=== PATIENT | female | born 1995 | race Two or more races ===

== ENCOUNTER 2020-10-11 13:03 | Outpatient (REF) | payer MEDICAID, SELFPAY ==
[2020-10-12 03:37] LABS: CT PCR NOT DETECTED (Not Detect.); NG PCR NOT DETECTED (Not Detect.)
[2020-10-12 07:55] LABS: HBc Num1 0.11 S/CO (0.00-0.79); Hepatitis B Core Antibody Nonreactive (Nonreactive)
[2020-10-12 08:05] LABS: HIV AB/AG Nonreactive (Nonreactive); ~HepC Num1 0.09 S/CO (0.00-0.79); ~Hepatitis C Antibody Nonreactive (Nonreactive)
[2020-10-12 08:14] LABS: Syphilis Screen Nonreactive (Nonreactive)
== END 2020-10-11 13:04 | disposition home or self-care (01) ==
LOC: HO.LAB 13:03
PROVIDERS: Visit Provider Advanced Practice Midwife
DX: Z01.419 Encounter for gynecological examination (general) (routine) without abnormal findings (principal); Z20.2 Contact with and (suspected) exposure to infections with a predominantly sexual mode of transmission
CPT/HCPCS: 86704; 86780; 86803; 87389; 87491; 87591

== ENCOUNTER 2021-02-13 18:01 | Emergency (ER) | payer OTHER, SELFPAY ==
--- NOTE | ~2021-02-13 | XR_ITS ---
EXAMINATION: LEFT SHOULDER, LEFT ELBOW AND LEFT WRIST CLINICAL INFORMATION: Shoulder, elbow and wrist pain COMPARISON: None TECHNIQUE: 4 views left shoulder, 3 views left elbow, 4 views left wrist FINDINGS: Left shoulder: No bone joint or soft tissue abnormality is seen. Left elbow: No significant bone joint or soft tissue abnormality is seen. Left wrist: No significant bone joint or soft tissue abnormality is seen. XR/XR wrist LT min 3V IMPRESSION: Normal studies without evidence of fracture.
--- NOTE | ~2021-02-13 | XR_ITS ---
EXAMINATION: LEFT SHOULDER, LEFT ELBOW AND LEFT WRIST CLINICAL INFORMATION: Shoulder, elbow and wrist pain COMPARISON: None TECHNIQUE: 4 views left shoulder, 3 views left elbow, 4 views left wrist FINDINGS: Left shoulder: No bone joint or soft tissue abnormality is seen. Left elbow: No significant bone joint or soft tissue abnormality is seen. Left wrist: No significant bone joint or soft tissue abnormality is seen. XR/XR shoulder LT min 2V IMPRESSION: Normal studies without evidence of fracture.
--- NOTE | ~2021-02-13 | XR_ITS ---
EXAMINATION: LEFT SHOULDER, LEFT ELBOW AND LEFT WRIST CLINICAL INFORMATION: Shoulder, elbow and wrist pain COMPARISON: None TECHNIQUE: 4 views left shoulder, 3 views left elbow, 4 views left wrist FINDINGS: Left shoulder: No bone joint or soft tissue abnormality is seen. Left elbow: No significant bone joint or soft tissue abnormality is seen. Left wrist: No significant bone joint or soft tissue abnormality is seen. XR/XR elbow LT 2V IMPRESSION: Normal studies without evidence of fracture.
[2021-02-13 18:13] VITALS: BP 170/91; PULSE 70; O2SAT 96
[2021-02-13 18:34] VITALS: BP 125/60; PULSE 78; RESP 16; TEMP 36.9; O2SAT 96; BMI 46.5
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
[2021-02-13 21:24] VITALS: BP 120/60; PULSE 70; RESP 16
== END 2021-02-13 22:13 | disposition home or self-care (01) ==
PROVIDERS: Emergency Provider Emergency Medicine Emergency Medical Services
DX: S63.502A Unspecified sprain of left wrist, initial encounter (principal); S66.912A Strain of unspecified muscle, fascia and tendon at wrist and hand level, left hand, initial encounter; V43.52XA Car driver injured in collision with other type car in traffic accident, initial encounter; Y93.89 Activity, other specified; Y92.414 Local residential or business street as the place of occurrence of the external cause; Y99.9 Unspecified external cause status
CPT/HCPCS: 29125; 73030; 73070; 73110; 99283; 99284

== ENCOUNTER → 2021-02-20 10:23 | Outpatient (BNVA) | payer OTHER, SELFPAY | PROVIDERS: Visit Provider Orthopaedic Surgery ==

== ENCOUNTER → 2021-05-19 08:30 | Outpatient (BNVA) | payer MEDICAID, SELFPAY | PROVIDERS: Referring Provider Nurse Practitioner; Visit Provider Physician Assistant ==

== ENCOUNTER 2021-05-23 07:23 | Outpatient (REF) | payer MEDICAID, SELFPAY ==
--- NOTE | ~2021-05-23 | XR_ITS ---
EXAMINATION: XR CHEST CLINICAL INFORMATION: Obesity COMPARISON: Prior chest February 2020 TECHNIQUE: 2 views of the chest were obtained. FINDINGS: No significant abnormality is noted involving the heart, lungs, mediastinum, bony thorax or soft tissues. Incidental note are presumed metallic piercings overlying both breasts unchanged XR/XR chest 2V IMPRESSION: No acute disease
--- NOTE | 2021-05-23 07:40 | ECG_ITS ---
Test Reason : E66.O1 Blood Pressure : / mmHG Vent. Rate : 073 BPM Atrial Rate : 073 BPM P-R Int : 192 ms QRS Dur : 096 ms QT Int : 406 ms P-R-T Axes : 030 029 037 degrees QTc Int : 447 ms Normal sinus rhythm Normal ECG No previous ECGs available Referred By: Michelle Sims Electronically Signed By:CATY MCGOWAN
[2021-05-23 08:30] LABS: MANUAL DIFF FLAG NO
[2021-05-23 08:35] LABS: Basophils Percent Auto 0.6 % (0-2); Eosinophils Absolute Auto 0.3 X10*3/uL (0.0-0.4); Eosinophils Percent Auto 3.6 % (0-4); Hemoglobin 11.9 g/dl (12.0-16.0); Imm Gran Abs Auto 0.02 X10*3/uL (0.00-0.03); Imm Gran Pct Auto 0.3 % (0.0-0.4); Lymphocytes Absolute Auto 3.1 X10*3/uL (1.2-4.9); Lymphocytes Percent Auto 42.3 % (20-40); Mean Corpuscular HGB Conc 33.1 g/dl (31.0-35.0); Mean Corpuscular Hemoglobin 29.5 pg (27.0-33.0); Mean Corpuscular Volume 89.1 fL (80-98); Mean Platelet Volume 9.6 fL (9.4-12.3); Monocytes Absolute Auto 0.6 X10*3/uL (0.1-1.2); Monocytes Percent Auto 7.9 % (2-11); Neutrophils Absolute Auto 3.3 X10*3/uL (2.0-8.3); Neutrophils Percent Auto 45.3 % (45-73); Platelet Count 346 X10*3/uL (160-400); Red Blood Count 4.04 X10*6/uL (4.20-5.50); Red Cell Distribution Width 12.6 % (11.0-16.0); White Blood Count 7.2 X10*3/uL (4.8-10.8)
[2021-05-23 08:46] LABS: Estimated Average Glucose 111 mg/dL; Hemoglobin A1c % 5.5 %
[2021-05-23 09:03] LABS: Alanine Aminotransferase 17 U/L (0-31); Albumin Level 4.3 g/dL (3.5-5.0); Alkaline Phosphatase 53 U/L (39-117); Anion Gap 15 (12-20); Aspartate Amino Transferase 17 U/L (5-31); Bilirubin Total 0.6 mg/dL (0.0-1.0); Blood Urea Nitrogen 13 mg/dL (9-16); C Reactive Protein 0.71 mg/dL (< or = 0.50); Calcium 9.6 mg/dL (8.4-10.2); Carbon Dioxide 21 mmol/L (22-29); Chloride 106 mmol/L (96-108); Cholesterol 161 mg/dL; Estimated Glomerular Filt Rate > 60; Glucose Fasting 92 mg/dL (60-99); HDL Cholesterol 55 mg/dL; Iron 96 mcg/dL (30-160); LDL Cholesterol Calculated 85 mg/dl; Percent Iron Saturation 28 % (15-50); Sodium 138 mmol/L (135-145); Total Iron Binding Capacity 347 mcg/dL (228-428); Triglycerides 106 mg/dL; Unsaturated Iron Binding 251 ug/dL
[2021-05-23 09:26] LABS: Ferritin 104 ng/mL (10-122); TSH reflex Free T4 2.33 uIU/mL (0.32-4.0); Vitamin D 25-OH Total 14.1 ng/mL (>30)
[2021-05-23 09:31] LABS: Folate 14.3 ng/mL (> or = 4.0); Vitamin B12 644 pg/mL (200-900)
[2021-05-24 09:42] LABS: Insulin Level Total 36.1 uIU/mL
[2021-05-24 15:27] LABS: H Pylori Breath Test DETECTED (NOT DETECTED)
[2021-05-25 09:12] LABS: Calcium (PTHI) 9.2 mg/dL (8.6-10.2); PTHI 49 pg/mL (14-64)
[2021-05-25 12:52] LABS: Zinc 92 mcg/dL (60-130)
[2021-05-26 05:31] LABS: Vitamin B1 8 nmol/L (8-30)
[2021-05-27 17:06] LABS: Vitamin A 43 mcg/dL (38-98)
== END 2021-05-23 07:24 | disposition home or self-care (01) ==
LOC: HO.LAB 07:23
PROVIDERS: Visit Provider Physician Assistant
DX: E66.01 Morbid (severe) obesity due to excess calories (principal); R06.02 Shortness of breath; Z68.42 Body mass index [BMI] 45.0-49.9, adult
CPT/HCPCS: 36415; 71046; 80053; 80061; 82306; 82607; 82728; 82746; 83013; 83036; 83525; 83540; 83970; 84425; 84443; 84590; 84630; 85025; 86140; 93005; 99211

== ENCOUNTER → 2021-06-06 10:31 | Outpatient (BNVA) | payer MEDICAID, SELFPAY | PROVIDERS: PCP Nurse Practitioner; Visit Provider Physician Assistant | DX: E66.01 Morbid (severe) obesity due to excess calories (principal); Z68.42 Body mass index [BMI] 45.0-49.9, adult | CPT/HCPCS: 99212 ==

== ENCOUNTER → 2021-06-14 08:02 | Outpatient (BNVA) | payer MEDICAID, SELFPAY | PROVIDERS: PCP Nurse Practitioner; Visit Provider Dietitian, Registered | DX: E66.01 Morbid (severe) obesity due to excess calories (principal) | CPT/HCPCS: 97802 ==

== ENCOUNTER → 2021-06-20 10:34 | Outpatient (BNVA) | payer MEDICAID, SELFPAY | PROVIDERS: PCP Nurse Practitioner; Visit Provider Physician Assistant ==

== ENCOUNTER 2021-06-27 09:35 | Outpatient (REF) | payer MEDICAID, SELFPAY ==
[2021-06-29 14:56] LABS: H Pylori Breath Test NOT DETECTED (NOT DETECTED)
== END 2021-06-27 09:36 | disposition home or self-care (01) ==
LOC: HO.LNP 09:35
PROVIDERS: PCP Nurse Practitioner; Referring Provider Nurse Practitioner; Visit Provider Physician Assistant
DX: E55.9 Vitamin D deficiency, unspecified (principal); E66.01 Morbid (severe) obesity due to excess calories; Z68.42 Body mass index [BMI] 45.0-49.9, adult; Z71.3 Dietary counseling and surveillance
CPT/HCPCS: 83013; 99211; 99212

== ENCOUNTER → 2021-06-27 10:57 | Outpatient (BNVA) | payer MEDICAID, SELFPAY | PROVIDERS: PCP Nurse Practitioner; Visit Provider Physician Assistant | DX: E66.01 Morbid (severe) obesity due to excess calories (principal); Z68.42 Body mass index [BMI] 45.0-49.9, adult; Z71.3 Dietary counseling and surveillance | CPT/HCPCS: 99211 ==

== ENCOUNTER → 2021-07-21 07:30 | Outpatient (BNVA) | payer MEDICAID, SELFPAY | PROVIDERS: PCP Nurse Practitioner; Visit Provider Surgery ==

== ENCOUNTER 2021-08-15 09:16 | Outpatient (REF) | payer MEDICAID, SELFPAY ==
--- NOTE | ~2021-08-15 | US_ITS ---
EXAMINATION: US COMPLETE ABDOMEN WITH LIVER ELASTOGRAPHY CLINICAL INFORMATION: Obesity COMPARISON: None. TECHNIQUE: Real-time imaging of the abdominal viscera. Noninvasive ultrasound liver fibrosis assessment is performed using Benita ElastPQ point quantification shear wave elastography (pSWE) with a C5-2 MHz transducer. Multiple elastography samples are obtained. FINDINGS: PANCREAS: Not well visualized due to bowel gas. ABDOMINAL AORTA: The proximal, middle, and distal aortic segments are normal in caliber. INFERIOR VENA CAVA: Visualized portions are normal. LIVER: The liver demonstrates normal size and contour. Liver echotexture is slightly increased. No focal lesion or intrahepatic biliary duct dilatation. The right lobe measures 16 cm in length. The left lobe measures 11 cm in length. Portal flow is normal/hepatopedal Shear wave liver elastography median stiffness is 1.55 m/s (reference: normal median stiffness is 1.3 m/s or less). IQR/median stiffness to assess sampling precision is 0.11 (reference: good quality data set is IQR/median stiffness of 0.15 or less). GALLBLADDER: Normal. The gallbladder is physiologically distended without evidence of stones, sludge, polyps, wall thickening or pericholecystic fluid. COMMON BILE DUCT: Normal in caliber measuring 0.4 cm in diameter. RIGHT KIDNEY: Normal. No hydronephrosis. No renal calculi or focal parenchymal lesions. The kidney measures 12 cm in maximum dimension. LEFT KIDNEY: Normal. No hydronephrosis. No renal calculi or focal parenchymal lesions. The kidney measures 12 cm in maximum dimension. SPLEEN: Normal. The spleen measures 10.4 cm in maximum dimension. FREE FLUID: None. US/US abdomen comp w elastography IMPRESSION: 1. Impression: Slightly echogenic liver probably representing fatty infiltration. Limited visualization of the pancreas. 2. Liver elastography: Adequate liver sampling. In the absence of other known clinical signs, rules out compensated advanced chronic liver disease. REFERENCE: Society of Radiologists in Ultrasound Liver Stiffness Thresholds (2020): LIVER STIFFNESS THRESHOLDS: *Liver Stiffness equal or less than 1.3 m/s: High probability of being normal. *Liver Stiffness less than 1.7 m/s: In the absence of other known clinical signs, rules out compensated advanced chronic liver disease. *Liver Stiffness 1.7-2.1 m/s: Suggestive of compensated advanced chronic liver disease but need further test for confirmation. *Liver Stiffness over 2.1 m/s: Rules in compensated advanced chronic liver disease. *Liver Stiffness over 2.4 m/s: Suggestive of clinically significant portal hypertension. QUALITY OF DATA SET: *IQR/Median value equal or less than 0.15 implies a quality data set. *IQR/Median value over 0.15 implies a poor quality data set. SIGNIFICANT CHANGE FROM PRIOR EXAM: Significant change if liver stiffness measurement is 10% or greater from prior exam. OTHER CONSIDERATIONS: The stage of liver fibrosis may be overestimated in the setting of acute hepatitis, liver inflammation, elevated liver function tests, hepatic vascular congestion, obstructive cholestasis, non-fasting state, and infiltrative diseases such as amyloidosis and lymphoma. In some patients with NAFLD, the liver stiffness thresholds for compensated advanced chronic liver disease may be lower. In causes other than viral hepatitis and NAFLD, liver stiffness thresholds are not well established.
--- NOTE | ~2021-08-15 | FL_ITS ---
EXAMINATION: XR GI SERIES CLINICAL INFORMATION: Obesity COMPARISON: None TECHNIQUE: Upper GI was performed using thin and thick barium and effervescent granules. FINDINGS: Esophageal motility is normal. No hernia or reflux. The stomach and duodenum are normal. No fold thickening, mass, ulcer or stricture is seen. FLUOROSCOPY TIME: 0.5 minutes DOSE AREA PRODUCT: 6.7 celaya per centimeter squared. 22 saved fluoroscopic images. FL/FL upper GI series IMPRESSION: Unremarkable examination.
== END 2021-08-15 09:17 | disposition home or self-care (01) ==
LOC: HO.US 09:16
PROVIDERS: Visit Provider Surgery
DX: Z01.818 Encounter for other preprocedural examination (principal); E66.01 Morbid (severe) obesity due to excess calories; K21.9 Gastro-esophageal reflux disease without esophagitis
CPT/HCPCS: 74240; 76705; 76981

== ENCOUNTER 2022-01-10 08:17 | Outpatient (REF) | payer MEDICAID, SELFPAY ==
[2022-01-10 15:36] LABS: CT PCR NOT DETECTED (Not Detect.); NG PCR NOT DETECTED (Not Detect.)
[2022-01-11 13:18] LABS: BV Int Neg Control Negative (Negative); BV Int Pos Control Positive (Positive)
== END 2022-01-10 08:18 | disposition home or self-care (01) ==
LOC: HO.LAB 08:17
PROVIDERS: PCP Nurse Practitioner; Visit Provider Advanced Practice Midwife
DX: Z01.419 Encounter for gynecological examination (general) (routine) without abnormal findings (principal); Z20.2 Contact with and (suspected) exposure to infections with a predominantly sexual mode of transmission
CPT/HCPCS: 87480; 87491; 87510; 87591; 87660; 88142

== ENCOUNTER 2022-05-10 17:23 | Emergency (ER) | payer MEDICAID, SELFPAY ==
--- NOTE | 2022-05-10 | ECG_ITS ---
Test Reason : dizzyness Blood Pressure : / mmHG Vent. Rate : 105 BPM Atrial Rate : 105 BPM P-R Int : 172 ms QRS Dur : 086 ms QT Int : 336 ms P-R-T Axes : 038 023 020 degrees QTc Int : 444 ms Sinus tachycardia Otherwise normal ECG When compared with ECG of 23-MAY-2021 07:53, T wave amplitude has decreased in Anterolateral leads Referred By: Generic ED Physician Electronically Signed By:BUNNY SANTIAGO MD
[2022-05-10 17:29] VITALS: BP 141/98; PULSE 105; RESP 16; TEMP 36.2; O2SAT 100; BMI 48.4
[2022-05-10 17:50] LABS: MANUAL DIFF FLAG NO
[2022-05-10 17:51] LABS: Basophils Percent Auto 0.3 % (0-2); Eosinophils Absolute Auto 0.3 X10*3/uL (0.0-0.4); Eosinophils Percent Auto 3.7 % (0-4); Hematocrit 34.8 % (37.0-47.0); Hemoglobin 11.7 g/dl (12.0-16.0); Imm Gran Abs Auto 0.02 X10*3/uL (0.00-0.03); Imm Gran Pct Auto 0.3 % (0.0-0.4); Lymphocytes Absolute Auto 1.9 X10*3/uL (1.2-4.9); Lymphocytes Percent Auto 27.4 % (20-40); Mean Corpuscular HGB Conc 33.6 g/dl (31.0-35.0); Mean Corpuscular Hemoglobin 29.9 pg (27.0-33.0); Mean Platelet Volume 9.4 fL (9.4-12.3); Monocytes Absolute Auto 0.9 X10*3/uL (0.1-1.2); Monocytes Percent Auto 12.6 % (2-11); Neutrophils Percent Auto 55.7 % (45-73); Platelet Count 278 X10*3/uL (160-400); Red Blood Count 3.91 X10*6/uL (4.20-5.50); Red Cell Distribution Width 12.9 % (11.0-16.0); White Blood Count 7.1 X10*3/uL (4.8-10.8)
[2022-05-10 18:10] LABS: Alanine Aminotransferase 23 U/L (0-31); Albumin Level 4.2 g/dL (3.5-5.0); Alkaline Phosphatase 61 U/L (39-117); Anion Gap 11 (12-20); Aspartate Amino Transferase 20 U/L (5-31); Bilirubin Total 0.3 mg/dL (0.0-1.0); Blood Urea Nitrogen 8 mg/dL (9-16); Calcium 8.7 mg/dL (8.4-10.2); Carbon Dioxide 25 mmol/L (22-29); Chloride 107 mmol/L (96-108); Creatinine Clr Calc Pharmacy 159.4; Estimated Glomerular Filt Rate > 60; Glucose Random 100 mg/dL (60-115); Potassium 3.9 mmol/L (3.3-5.1); Sodium 139 mmol/L (135-145); Total Protein 7.4 g/dL (6.5-8.0)
[2022-05-10 18:11] LABS: Troponin-I High Sensitivity < 3.5 ng/L (<3.5-17.0)
[2022-05-10 19:27] VITALS: BP 143/85; PULSE 84; RESP 18; TEMP 36.9; O2SAT 99
--- NOTE | 2022-05-10 19:40 | ED_ITS ---
HPI - General Adult General Chief complaint: General Medical Stated complaint: left side numb,dizzy,blurred vision,heartrate high Time Seen by Provider: 05/10/22 17:36 Source: patient Mode of arrival: ambulatory Limitations: no limitations History of Present Illness HPI narrative: 27 years old female came in for evaluation of generalized body ache. Patient woke up this morning with left-sided neck pain and numbness, patient went to work as they progress patient started to have generalized malaise, felt dizzy and blurred vision that lasted for 1 or 2 hours, then symptoms resolved patient still feeling generalized weakness, had the nurse to check her blood pressure and heart rate reportedly were high. No fever, no chills, no coughing, no abdominal pain, no nausea, no vomiting, no diarrhea, normal bowel movement. Patient also reported normal appetite, no sick contact, no recent travel. Patient recently was treated for STD, reverted no vaginal discharge, no dysuria, no vaginal bleeding, patient currently not sexually active but concern of still having STD. Patient reported that she feels fine now to her baseline. Related Data Home Medications Medication Instructions Recorded Confirmed No Known Home Meds 01/10/22 01/10/22 Allergies Allergy/AdvReac Type Severity Reaction Status Date / Time No Known Allergies Allergy Verified 01/10/22 08:36 Review of Systems Review of Systems: All other systems are reviewed and are negative Constitutional: Reports as per HPI and Reports no additional constitutional co mplaints Eyes: Reports as per HPI and Reports no additional eye complaints Reports system reviewed and no additional complaints, except as documented Cardiovascular: Reports as per HPI and Reports no additional cardiovascular complaints Respiratory: Reports as per HPI and Reports no additional respiratory complaints Gastrointestinal: Reports as per HPI and Reports no additional gastrointestinal complaints Genitourinary: Reports no additional female genitourinary complaints Musculoskeletal: Reports no additional musculoskeletal complaints Skin/Breast: Reports system reviewed and no additional complaints, except as docu Psychiatric: Reports no additional psychiatric complaints Endocrine: Reports no additional endocrine complaints Hematologic/Lymphatic: Reports no additional hematologic/lymphatic complaints Allergic/Immunologic: Reports no additional allergic/immunologic complaints Reports system reviewed and no additional complaints, except as documented and Reports Abnormal speech present [facility] Past Medical History Medical History Pre-diabetes Surgical History No history of previous surgery Family History Family History Father Diabetes Mother Depression Hypertension Brother No problems noted. Sister No problems noted. Sister No problems noted. Sister No problems noted. Sister No problems noted. Sister No problems noted. Sister No problems noted. Sister No problems noted. Social History Social History Alcohol intake: never Patient Tobacco Use Status: Never used Tobacco Advance Directives: No Advance Directives Information Provided: No Current occupational status: employed Current occupation: rt handed Gender identity: Female Physical Exam ED Vital Signs: Vital Signs - 24 hr 05/10/22 17:29 05/10/22 19:27 Temperature 97.2 F 98.4 F Pulse Rate 105 H 84 Respiratory Rate 16 18 Blood Pressure 141/98 H 143/85 H Pulse Oximetry 100 99 Oxygen Delivery Method Room Air Room Air BMI result Body Mass Index 48.4 Vital signs have been reviewed as appeared to be correct. Blood pressure normal. Heart rate normal. Respiration rate normal. Temperature normal. Oxygen saturation normal. Appearance: Alert. Oriented X3. No acute distress. Head: Normal external exam. Normocephalic. Atraumatic. No Nguyen signs noted. No raccoon eyes noted Eyes: PERRLA. EOMI. Conjunctiva and sclera normal. Eyelids normal. ENT: TM's Normal. Pharynx normal. Uvula midline. Moist mucous membranes. No trismus noted. No drooling noted. No muffled voice noted. Neck: Normal inspection. Neck supple. FROM. No adenopathy. Thyroid Normal. No meningeal signs. No neck mass noted. CVS: Normal heart rate and rhythm. Heart sound normal. No murmurs noted. Pulses normal throughout. Respiratory: No respiratory distress. Painless inspiration. Breath sounds normal. No wheezes/rales/rhonchi noted. Chest nontender. No accessory muscle usage noted or decreased air movement noted. Abdomen: Soft and nontender. Bowel sounds normal in all 4 quadrants. No distention noted. No organomegaly noted. No visible injury noted. Back: No CVA tenderness. Full range of motion noted. Skin: Skin warm and dry. Normal skin color. Normal skin turgor. No rashes/lesions/lacerations noted. Extremities: No lower extremity edema. Extremities exhibit normal range of motion. Extremities nontender. Neuro: Oriented X 3. Cranial nerve exam: II-XII are grossly intact No motor deficit. No sensory deficit. Reflexes normal. Course Course Course Narrative: Assessment and plan. 27-year-old female came in for generalized weakness and left-sided neck pain and numbness, exam is nonspecific and patient's symptoms still with unclear etiology. Patient has unremarkable labs and vital signs stable, patient feels at her baseline. Patient's concern of STD testing still pending. Medical Decision Making Lab Data Lab results reviewed: Yes I reviewed the patient's lab results. Result diagrams: 05/10/22 17:45 05/10/22 17:45 Labs: Lab Results 05/10/22 05/10/22 05/10/22 Range/Units 17:45 17:45 17:45 WBC 7.1 (4.8-10.8) X10*3/uL RBC 3.91 L (4.20-5.50) X10*6/uL Hgb 11.7 L (12.0-16.0) g/dl Hct 34.8 L (37.0-47.0) % MCV 89.0 (80.0-98.0) fL MCH 29.9 (27.0-33.0) pg MCHC 33.6 (31.0-35.0) g/dl RDW 12.9 (11.0-16.0) % Plt Count 278 (160-400) X10*3/uL MPV 9.4 (9.4-12.3) fL Immature Gran % (Auto) 0.3 (0.0-0.4) % Neut % (Auto) 55.7 (45-73) % Lymph % (Auto) 27.4 (20-40) % [place] % (Auto) 12.6 H (2-11) % Eos % (Auto) 3.7 (0-4) % Baso % (Auto) 0.3 (0-2) % Lymph # (Auto) 1.9 (1.2-4.9) X10*3/uL [place] # (Auto) 0.9 (0.1-1.2) X10*3/uL Eos # (Auto) 0.3 (0.0-0.4) X10*3/uL Baso # (Auto) 0.0 (0.0-0.2) X10*3/uL Abs Immat Gran (auto) 0.02 (0.00-0.03) X10*3/uL Absolute Neuts (auto) 4.0 (2.0-8.3) x10*3/uL Absolute Nucleated RBC 0.000 (0.0-0.012) X10*3/uL Nucleated RBC % (auto) 0.0 (0.0-0.2) /100WBC Sodium 139 (135-145) mmol/L Potassium 3.9 (3.3-5.1) mmol/L Chloride 107 (96-108) mmol/L Carbon Dioxide 25 (22-29) mmol/L Anion Gap 11 L (12-20) BUN 8 L (9-16) mg/dL Creatinine 0.76 (0.5-1.4) mg/dL Estim Creat Clear Calc 159.4 Estimated GFR > 60 Random Glucose 100 (60-115) mg/dL Calcium 8.7 D (8.4-10.2) mg/dL Total Bilirubin 0.3 (0.0-1.0) mg/dL AST 20 (5-31) U/L ALT 23 (0-31) U/L Alkaline Phosphatase 61 (39-117) U/L Troponin I High Sens < 3.5 (<3.5-17.0) ng/L Total Protein 7.4 (6.5-8.0) g/dL Albumin 4.2 (3.5-5.0) g/dL Urine Color Urine Appearance Urine pH (5.0-8.0) Ur Specific [place] (1.005-1.025) Urine Protein (NEG-TRACE) MG/DL Urine Glucose (UA) (NEG) MG/DL Urine Ketones (NEG) MG/DL Urine Blood (NEG) Urine Nitrite (NEG) Ur Leukocyte Esterase (NEG) Urine Test (NEGATIVE) Influenza Type A (PCR) (Negative) Influenza Type B (PCR) (Negative) RSV RNA Qual (PCR) (Negative) SARS-CoV-2 RNA (RT-PCR) (Negative) S. pyogenes GrpA VALENTINE (Negative) 05/10/22 05/10/22 05/10/22 Range/Units 19:34 19:34 19:58 WBC (4.8-10.8) X10*3/uL RBC (4.20-5.50) X10*6/uL Hgb (12.0-16.0) g/dl Hct (37.0-47.0) % MCV (80.0-98.0) fL MCH (27.0-33.0) pg MCHC (31.0-35.0) g/dl RDW (11.0-16.0) % Plt Count (160-400) X10*3/uL MPV (9.4-12.3) fL Immature Gran % (Auto) (0.0-0.4) % Neut % (Auto) (45-73) % Lymph % (Auto) (20-40) % [place] % (Auto) (2-11) % Eos % (Auto) (0-4) % Baso % (Auto) (0-2) % Lymph # (Auto) (1.2-4.9) X10*3/uL [place] # (Auto) (0.1-1.2) X10*3/uL Eos # (Auto) (0.0-0.4) X10*3/uL Baso # (Auto) (0.0-0.2) X10*3/uL Abs Immat Gran (auto) (0.00-0.03) X10*3/uL Absolute Neuts (auto) (2.0-8.3) x10*3/uL Absolute Nucleated RBC (0.0-0.012) X10*3/uL Nucleated RBC % (auto) (0.0-0.2) /100WBC Sodium (135-145) mmol/L Potassium (3.3-5.1) mmol/L Chloride (96-108) mmol/L Carbon Dioxide (22-29) mmol/L Anion Gap (12-20) BUN (9-16) mg/dL Creatinine (0.5-1.4) mg/dL Estim Creat Clear Calc Estimated GFR Random Glucose (60-115) mg/dL Calcium (8.4-10.2) mg/dL Total Bilirubin (0.0-1.0) mg/dL AST (5-31) U/L ALT (0-31) U/L Alkaline Phosphatase (39-117) U/L Troponin I High Sens (<3.5-17.0) ng/L Total Protein (6.5-8.0) g/dL Albumin (3.5-5.0) g/dL Urine Color DK YELLOW Urine Appearance CLEAR Urine pH 7.0 (5.0-8.0) Ur Specific [place] 1.020 (1.005-1.025) Urine Protein TRACE (NEG-TRACE) MG/DL Urine Glucose (UA) NEG (NEG) MG/DL Urine Ketones NEG (NEG) MG/DL Urine Blood NEG (NEG) Urine Nitrite NEG (NEG) Ur Leukocyte Esterase NEG (NEG) Urine Test (NEGATIVE) Influenza Type A (PCR) NEGATIVE (Negative) Influenza Type B (PCR) NEGATIVE (Negative) RSV RNA Qual (PCR) NEGATIVE (Negative) SARS-CoV-2 RNA (RT-PCR) NEGATIVE (Negative) S. pyogenes GrpA VALENTINE Negative (Negative) 05/10/22 Range/Units 19:58 WBC (4.8-10.8) X10*3/uL RBC (4.20-5.50) X10*6/uL Hgb (12.0-16.0) g/dl Hct (37.0-47.0) % MCV (80.0-98.0) fL MCH (27.0-33.0) pg MCHC (31.0-35.0) g/dl RDW (11.0-16.0) % Plt Count (160-400) X10*3/uL MPV (9.4-12.3) fL Immature Gran % (Auto) (0.0-0.4) % Neut % (Auto) (45-73) % Lymph % (Auto) (20-40) % [place] % (Auto) (2-11) % Eos % (Auto) (0-4) % Baso % (Auto) (0-2) % Lymph # (Auto) (1.2-4.9) X10*3/uL [place] # (Auto) (0.1-1.2) X10*3/uL Eos # (Auto) (0.0-0.4) X10*3/uL Baso # (Auto) (0.0-0.2) X10*3/uL Abs Immat Gran (auto) (0.00-0.03) X10*3/uL Absolute Neuts (auto) (2.0-8.3) x10*3/uL Absolute Nucleated RBC (0.0-0.012) X10*3/uL Nucleated RBC % (auto) (0.0-0.2) /100WBC Sodium (135-145) mmol/L Potassium (3.3-5.1) mmol/L Chloride (96-108) mmol/L Carbon Dioxide (22-29) mmol/L Anion Gap (12-20) BUN (9-16) mg/dL Creatinine (0.5-1.4) mg/dL Estim Creat Clear Calc Estimated GFR Random Glucose (60-115) mg/dL Calcium (8.4-10.2) mg/dL Total Bilirubin (0.0-1.0) mg/dL AST (5-31) U/L ALT (0-31) U/L Alkaline Phosphatase (39-117) U/L Troponin I High Sens (<3.5-17.0) ng/L Total Protein (6.5-8.0) g/dL Albumin (3.5-5.0) g/dL Urine Color Urine Appearance Urine pH (5.0-8.0) Ur Specific [place] (1.005-1.025) Urine Protein (NEG-TRACE) MG/DL Urine Glucose (UA) (NEG) MG/DL Urine Ketones (NEG) MG/DL Urine Blood (NEG) Urine Nitrite (NEG) Ur Leukocyte Esterase (NEG) Urine Test NEGATIVE (NEGATIVE) Influenza Type A (PCR) (Negative) Influenza Type B (PCR) (Negative) RSV RNA Qual (PCR) (Negative) SARS-CoV-2 RNA (RT-PCR) (Negative) S. pyogenes GrpA VALENTINE (Negative) Discharge Plan Discharge Clinical Impression: Episode of generalized weakness Patient Disposition: Home, Self-Care Instructions: Fatigue (ED) Prescriptions: No Action No Known Home Meds Stand Alone Forms: Work/School Release
[2022-05-10 19:47] LABS: Strep A Nucleic Acid Negative (Negative)
[2022-05-10 20:06] LABS: Appearance Urine CLEAR; Color Urine DK YELLOW; Glucose Urine UA NEG (NEG); Leukocyte Esterase Urine NEG (NEG); Nitrite Urine NEG (NEG); Urine Blood NEG (NEG); Urine Ketones NEG (NEG); Urine Protein TRACE MG/DL (NEG-TRACE)
[2022-05-10 20:07] LABS: UPreg QC Valid YES; Urine Pregnancy NEGATIVE (NEGATIVE)
[2022-05-10 20:19] LABS: Influenza A PCR NEGATIVE (Negative); Influenza B PCR NEGATIVE (Negative); Resp Syncy Virus RNA Qual PCR NEGATIVE (Negative); SARS COV2 PCR INHOUSE NEGATIVE (Negative)
[2022-05-11 09:34] LABS: CT PCR NOT DETECTED (Not Detect.); NG PCR NOT DETECTED (Not Detect.)
== END 2022-05-10 21:29 | disposition home or self-care (01) ==
PROVIDERS: Emergency Provider Emergency Medicine; PCP Nurse Practitioner
DX: R53.1 Weakness (principal); Z20.2 Contact with and (suspected) exposure to infections with a predominantly sexual mode of transmission; Z20.822 Contact with and (suspected) exposure to COVID-19
CPT/HCPCS: 0241U; 36415; 80053; 81003; 81025; 84484; 85025; 87491; 87591; 87651; 93005; 99283; 99284

== ENCOUNTER 2022-05-13 22:48 | Emergency (ER) | payer MEDICAID, SELFPAY ==
--- NOTE | ~2022-05-13 | XR_ITS ---
EXAMINATION: XR CHEST CLINICAL INFORMATION: Cough. COMPARISON: None TECHNIQUE: 2 views of the chest were obtained. FINDINGS: No significant abnormality is noted involving the heart, lungs, mediastinum, bony thorax or soft tissues. XR/XR chest 2V IMPRESSION: Unremarkable chest examination.
[2022-05-13 22:52] VITALS: BP 143/89; PULSE 120; RESP 20; TEMP 37.8; O2SAT 98; BMI 48.4
[2022-05-13] MEDS: Acetaminophen 325 MG TABLET 650 MG PO (22:58)
[2022-05-13 23:22] LABS: Strep A Nucleic Acid Negative (Negative)
[2022-05-13 23:47] LABS: COVID-19 Test Negative (Negative)
--- NOTE | 2022-05-14 01:48 | ED.URI ---
HPI - URI/Sore Throat General Chief Complaint: Upper Respiratory Symptoms Stated Complaint: migraine Time Seen by Provider: 05/14/22 01:47 Source: patient Mode of arrival: ambulatory Limitations: no limitations History of Present Illness HPI Narrative: Patient complaining of sore throat headache body aches for last 3 -4 days was seen here on 05/10 COVID and strep was negative patient still feel sore throat now having the headaches patient given she bends down noticed her discharge had dry cough low-grade fever Related Data Previous Rx's Medication Instructions Recorded amoxicillin 875 mg-potassium 1 tab PO BID #20 tabs 05/14/22 clavulanate 125 mg tablet ibuprofen 600 mg tablet 600 mg PO Q6H PRN pain #20 tabs 05/14/22 Allergies Allergy/AdvReac Type Severity Reaction Status Date / Time No Known Allergies Allergy Verified 01/10/22 08:36 Review of Systems Review of Systems: Yes all other systems are reviewed and are negative [facility] Past Medical History Attestation statement: The following information was validated with the patient. Medical History Pre-diabetes Surgical History No history of previous surgery Family History Family History Father Diabetes Mother Depression Hypertension Brother No problems noted. Sister No problems noted. Sister No problems noted. Sister No problems noted. Sister No problems noted. Sister No problems noted. Sister No problems noted. Sister No problems noted. Social History Social History Alcohol intake: never Patient Tobacco Use Status: Never used Tobacco Advance Directives: No Advance Directives Information Provided: No Current occupational status: employed Current occupation: rt handed Gender identity: Female Physical Exam Vital Signs: Vital Signs: Last Vital Signs Temp 100.0 F 05/13/22 22:52 Pulse 120 H 05/13/22 22:52 Resp 20 05/13/22 22:52 BP 143/89 H 05/13/22 22:52 Pulse Ox 98 05/13/22 22:52 O2 Del Method 05/13/22 22:52 BMI result Body Mass Index 48.4 Appearance: Alert. Oriented X3. No acute distress. ENT: Enlarged tonsils with exudate on the left tonsil. Oral Mucosa moist Neck: Normal inspection. Neck supple. Upper cervical lymph nodes enlarged CVS: Normal heart rate and rhythm. Pulses normal. Respiratory: No respiratory distress. Equal air entry bilateral, no wheezing/rales/rhonchi Abdomen: Soft and nontender. Bowel sounds are present, no mass palpable, Skin: Skin warm and dry. Normal skin color. Normal skin turgor. Extremities: No lower extremity edema. No calf tenderness Neuro: Oriented X 3. No motor deficit. MDM - URI/Sore Throat MDM Narrative Medical decision making narrative: Patient with acute pharyngitis with sinus headache will discharge patient home on Augmentin and ibuprofen Medical Records Attestation: I reviewed the patient's medical records. Lab Data Attestation: I reviewed the patient's lab results. Labs: Lab Results 05/13/22 05/13/22 Range/Units 23:03 23:03 COVID-19 (ANCELMO) Negative (Negative) COVID-19 Clin Com See Note S. pyogenes GrpA VALENTINE Negative (Negative) Discharge Plan Discharge Clinical Impression: Acute pharyngitis, Sinusitis Patient Disposition: Home, Self-Care Instructions: Pharyngitis (ED), Sinusitis (ED) Additional Instructions: Drink plenty of fluids Take antibiotic as prescribed For the PCP if not better Prescriptions: New ibuprofen 600 mg tablet 600 mg PO Q6H PRN (Reason: pain) Qty: 20 0RF amoxicillin-pot clavulanate 875-125 mg tablet 1 tab PO BID Qty: 20 0RF
[2022-05-14] MEDS: guaiFEN/Codeine SF 200/20/10ML 10 ML LIQUID PO (02:07)
[2022-05-14] MEDS: Amoxicillin/Potassium Clav 875 MG TABLET PO (02:07)
[2022-05-14] MEDS: Ketorolac Tromethamine 60 MG/2 ML VIAL IM (02:08)
[2022-05-14 03:12] VITALS: BP 134/79; PULSE 88; RESP 18; TEMP 36.3; O2SAT 97
[2022-05-14] MEDS: SUMAtriptan succinate 6 MG/0.5 ML VIAL SUBCUT (03:12)
== END 2022-05-14 03:14 | disposition home or self-care (01) ==
PROVIDERS: Emergency Provider Internal Medicine
DX: J02.9 Acute pharyngitis, unspecified (principal); G43.909 Migraine, unspecified, not intractable, without status migrainosus; J32.9 Chronic sinusitis, unspecified; M79.10 Myalgia, unspecified site; Z20.822 Contact with and (suspected) exposure to COVID-19; Z79.899 Other long term (current) drug therapy
CPT/HCPCS: 71046; 87635; 87651; 96372; 99284; J1885; J3030

== ENCOUNTER 2022-11-16 15:51 | Emergency (ER) | payer MEDICAID, SELFPAY ==
--- NOTE | ~2022-11-16 | XR_ITS ---
EXAMINATION: XR CHEST CLINICAL INFORMATION: Chest pain COMPARISON: None TECHNIQUE: 2 views of the chest were obtained. FINDINGS: No significant abnormality is noted involving the heart, lungs, mediastinum, bony thorax or soft tissues. XR/XR chest 2V IMPRESSION: Unremarkable chest examination.
--- NOTE | 2022-11-16 16:11 | ECG_ITS ---
Test Reason : chest pain Blood Pressure : / mmHG Vent. Rate : 103 BPM Atrial Rate : 103 BPM P-R Int : 162 ms QRS Dur : 084 ms QT Int : 348 ms P-R-T Axes : 044 040 015 degrees QTc Int : 455 ms Sinus tachycardia Nonspecific T wave abnormality Abnormal ECG When compared with ECG of 10-MAY-2022 17:26, No significant change was found Referred By: Ana Laura Renteria Electronically Signed By:BUNNY SANTIAGO MD
[2022-11-16 17:05] VITALS: BP 129/84; PULSE 98; RESP 18; TEMP 36.7; O2SAT 96; BMI 48.4
[2022-11-16] MEDS: Acetaminophen 325 MG TABLET 650 MG PO (17:14)
[2022-11-16 19:47] LABS: MANUAL DIFF FLAG NO
[2022-11-16 19:49] LABS: Basophils Percent Auto 0.4 % (0-2); Eosinophils Absolute Auto 0.2 X10*3/uL (0.0-0.4); Eosinophils Percent Auto 2.9 % (0-4); Hematocrit 35.8 % (37.0-47.0); Hemoglobin 11.7 g/dl (12.0-16.0); Imm Gran Abs Auto 0.02 X10*3/uL (0.00-0.03); Imm Gran Pct Auto 0.3 % (0.0-0.4); Lymphocytes Absolute Auto 1.8 X10*3/uL (1.2-4.9); Mean Corpuscular HGB Conc 32.7 g/dl (31.0-35.0); Mean Corpuscular Hemoglobin 29.3 pg (27.0-33.0); Mean Corpuscular Volume 89.7 fL (80.0-98.0); Mean Platelet Volume 9.2 fL (9.4-12.3); Monocytes Absolute Auto 1.3 X10*3/uL (0.1-1.2); Monocytes Percent Auto 18.4 % (2-11); Neutrophils Absolute Auto 3.5 x10*3/uL (2.0-8.3); Platelet Count 257 X10*3/uL (160-400); Red Blood Count 3.99 X10*6/uL (4.20-5.50); Red Cell Distribution Width 13.1 % (11.0-16.0); White Blood Count 6.8 X10*3/uL (4.8-10.8)
--- NOTE | 2022-11-16 19:49 | ED.GENADULT ---
HPI - General Adult General Chief complaint: General Medical Stated complaint: Chest pain, COVID+ 4 x ago Time Seen by Provider: 11/16/22 19:33 Source: patient Mode of arrival: ambulatory Limitations: no limitations History of Present Illness HPI narrative: Patient comes to the emergency room complaining of 4 days of chest pain on the right side, pain with deep breath. Patient states she has a significant burning sensation on the right side. Patient states that she tested positive for COVID yesterday. Related Data Previous Rx's Medication Instructions Recorded amoxicillin 875 mg-potassium 1 tab PO BID #20 tabs 05/14/22 clavulanate 125 mg tablet ibuprofen 600 mg tablet 600 mg PO Q6H PRN pain #20 tabs 05/14/22 levonorgestrel 1.5 mg tablet (Plan 1.5 mg PO ONCE 1 day #1 tab 07/25/22 B One-Step) ibuprofen 600 mg tablet 600 mg PO TID PRN fever or pain 11/16/22 #14 tabs Allergies Allergy/AdvReac Type Severity Reaction Status Date / Time No Known Allergies Allergy Verified 01/10/22 08:36 Review of Systems Review of Systems: Constitutional : No Weight loss, No Fever, No Chills, No Night Sweats, No Fatigue, No Malaise ENT/Mouth : No Hearing loss, No Ear Pain, No Nasal Congestion, No Sinus Pain, No Hoarseness, No sore throat, No Rhinorrhea, No Swallowing Difficulty Eyes: No Eye Pain, No Swelling, No Redness, No Foreign Body, No Discharge, No Vision Changes Cardiovascular : Complaining of right-sided Chest Pain, No SOB, pain with inspiration on the right side. Respiratory : No Cough, No Sputum, No Wheezing, No Smoke Exposure, No Dyspnea Gastrointestinal : No Nausea, No Vomiting, No Diarrhea, No Constipation, No abdominal Pain, No Hematochezia, No Melena Genitourinary : no irregular bleeding, No Dysuria, No Urinary Frequency, No Hematuria, No Urinary Incontinence, No Urgency, No Flank Pain, No Urinary Flow Changes, No Hesitancy Musculoskeletal : No joint pain, No Myalgias, No Joint Swelling Skin : No Skin Lesions, No rash Neuro : No Weakness, No Numbness, No Paresthesias, No Loss of Consciousness, No Dizziness, No Headache Psych : No Anxiety/Panic, No Depression, No SI/HI/AH/VH, No Social Issues, Heme/Lymph: No Bruising, No Bleeding,No Lymphadenopathy Endocrine : No Polyuria, No Polydipsia, No Temperature Intolerance [facility] Past Medical History Medical History BMI 45.0-49.9, adult Extreme obesity H. pylori infection Morbid obesity Pre-diabetes Shortness of Breath Vitamin D deficiency Surgical History No history of previous surgery Family History Family History Father Diabetes Mother Depression Hypertension Brother No problems noted. Sister No problems noted. Sister No problems noted. Sister No problems noted. Sister No problems noted. Sister No problems noted. Sister No problems noted. Sister No problems noted. Social History Social History Alcohol intake: never Patient Tobacco Use Status: Never used Tobacco Advance Directives: No Advance Directives Information Provided: No Current occupational status: employed Current occupation: rt handed Gender identity: Female Physical Exam ED Vital Signs: Vital Signs - 24 hr 11/16/22 17:05 Temperature 98.1 F Pulse Rate 98 Respiratory Rate 18 Blood Pressure 129/84 Pulse Oximetry 96 Oxygen Delivery Method Room Air BMI result Body Mass Index 48.4 Const Other: Appearance: Alert. Oriented X3. No acute distress. Eyes: Pupils equal, round and reactive to light. ENT: Pharynx normal. Neck: Normal inspection. Neck supple. No lymph nodes noted. No crepitus CVS: Normal heart rate and rhythm. Pulses normal. Normal S1 and S2 Respiratory: No respiratory distress. Breath sounds normal. No Wheezing. No rales Abdomen: Soft and nontender. No rigidity. No distention. Skin: Skin warm and dry. Normal skin color. Normal skin turgor. Extremities: No lower extremity edema. No Lacerations. No Rash Neuro: Oriented X 3. No motor deficit. No sensory deficit. Moving all extremities. No slurred speech. CN 2 through 12 grossly intact Psych: calm, cooperative, normal affect Course Course Course Narrative: Patient's labs including D-dimer pending. Chest x-ray negative White blood cell count within normal limits, D-dimer negative, chest x-ray negative Patient tested positive for COVID Medications Administered Discontinued Medications Generic Name Dose Route Start Last Admin Trade Name Danny PRN Reason Stop Dose Admin Acetaminophen 650 mg 11/16/22 17:12 11/16/22 17:14 Acetaminophen 325 Mg Tablet PO 11/16/22 17:13 650 mg ONCE ONE Administration Medical Decision Making Lab Data Result Diagrams: 11/16/22 19:42 11/16/22 19:43 Labs: Lab Results 11/16/22 11/16/22 11/16/22 Range/Units 19:42 19:43 19:43 WBC 6.8 (4.8-10.8) X10*3/uL RBC 3.99 L (4.20-5.50) X10*6/uL Hgb 11.7 L (12.0-16.0) g/dl Hct 35.8 L (37.0-47.0) % MCV 89.7 (80.0-98.0) fL MCH 29.3 (27.0-33.0) pg MCHC 32.7 (31.0-35.0) g/dl RDW 13.1 (11.0-16.0) % Plt Count 257 (160-400) X10*3/uL MPV 9.2 L (9.4-12.3) fL Immature Gran % (Auto) 0.3 (0.0-0.4) % Neut % (Auto) 51.0 (45-73) % Lymph % (Auto) 27.0 (20-40) % Tucker % (Auto) 18.4 H (2-11) % Eos % (Auto) 2.9 (0-4) % Baso % (Auto) 0.4 (0-2) % Lymph # (Auto) 1.8 (1.2-4.9) X10*3/uL Tucker # (Auto) 1.3 H (0.1-1.2) X10*3/uL Eos # (Auto) 0.2 (0.0-0.4) X10*3/uL Baso # (Auto) 0.0 (0.0-0.2) X10*3/uL Abs Immat Gran (auto) 0.02 (0.00-0.03) X10*3/uL Absolute Neuts (auto) 3.5 (2.0-8.3) x10*3/uL Absolute Nucleated RBC 0.000 (0.0-0.012) X10*3/uL Nucleated RBC % (auto) 0.0 (0.0-0.2) /100WBC D-Dimer High Sensitivty < 150 NG/ML Sodium 139 (135-145) mmol/L Potassium 3.8 (3.3-5.1) mmol/L Chloride 105 (96-108) mmol/L Carbon Dioxide 28 (22-29) mmol/L Anion Gap 10 L (12-20) BUN 9 (9-16) mg/dL Creatinine 0.76 (0.5-1.4) mg/dL Estim Creat Clear Calc 159.4 Estimated GFR > 60 Random Glucose 107 (60-115) mg/dL Calcium 8.9 (8.4-10.2) mg/dL Troponin I High Sens (<3.5-17.0) ng/L COVID-19 (ANCELMO) (Negative) COVID-19 Clin Com Influenza Type A (VALENTINE) (Negative) Influenza Type B (VALENTINE) (Negative) Influenza A & B Note 11/16/22 11/16/22 11/16/22 Range/Units 19:43 19:50 19:50 WBC (4.8-10.8) X10*3/uL RBC (4.20-5.50) X10*6/uL Hgb (12.0-16.0) g/dl Hct (37.0-47.0) % MCV (80.0-98.0) fL MCH (27.0-33.0) pg MCHC (31.0-35.0) g/dl RDW (11.0-16.0) % Plt Count (160-400) X10*3/uL MPV (9.4-12.3) fL Immature Gran % (Auto) (0.0-0.4) % Neut % (Auto) (45-73) % Lymph % (Auto) (20-40) % Tucker % (Auto) (2-11) % Eos % (Auto) (0-4) % Baso % (Auto) (0-2) % Lymph # (Auto) (1.2-4.9) X10*3/uL Tucker # (Auto) (0.1-1.2) X10*3/uL Eos # (Auto) (0.0-0.4) X10*3/uL Baso # (Auto) (0.0-0.2) X10*3/uL Abs Immat Gran (auto) (0.00-0.03) X10*3/uL Absolute Neuts (auto) (2.0-8.3) x10*3/uL Absolute Nucleated RBC (0.0-0.012) X10*3/uL Nucleated RBC % (auto) (0.0-0.2) /100WBC D-Dimer High Sensitivty NG/ML Sodium (135-145) mmol/L Potassium (3.3-5.1) mmol/L Chloride (96-108) mmol/L Carbon Dioxide (22-29) mmol/L Anion Gap (12-20) BUN (9-16) mg/dL Creatinine (0.5-1.4) mg/dL Estim Creat Clear Calc Estimated GFR Random Glucose (60-115) mg/dL Calcium (8.4-10.2) mg/dL Troponin I High Sens < 3.5 (<3.5-17.0) ng/L COVID-19 (ANCELMO) Positive A (Negative) COVID-19 Clin Com See Note Influenza Type A (VALENTINE) Negative (Negative) Influenza Type B (VALENTINE) Negative (Negative) Influenza A & B Note See Note Discharge Plan Discharge Clinical Impression: COVID-19, Pleurisy Patient Disposition: Home, Self-Care Instructions: Pleurisy (ED), COVID-19 (Coronavirus Disease 2019) (ED) Additional Instructions: Please follow-up with your primary care physician tomorrow. If you have any worsening or new symptoms, please return to the emergency room or call 911 Prescriptions: New ibuprofen 600 mg tablet 600 mg PO TID PRN (Reason: fever or pain) Qty: 14 0RF No Action levonorgestrel [Plan B One-Step] 1.5 mg tablet 1.5 mg PO ONCE 1 Days Qty: 1 0RF ibuprofen 600 mg tablet 600 mg PO Q6H PRN (Reason: pain) Qty: 20 0RF amoxicillin-pot clavulanate 875-125 mg tablet 1 tab PO BID Qty: 20 0RF
[2022-11-16 20:04] LABS: COVID-19 Test Positive (Negative); IDNOW Serial# 6674DD1D
[2022-11-16 20:06] LABS: D Dimer High Sensitivity < 150 NG/ML
[2022-11-16 20:10] LABS: Anion Gap 10 (12-20); Blood Urea Nitrogen 9 mg/dL (9-16); Calcium 8.9 mg/dL (8.4-10.2); Carbon Dioxide 28 mmol/L (22-29); Chloride 105 mmol/L (96-108); Creatinine Clr Calc Pharmacy 159.4; Estimated Glomerular Filt Rate > 60; Glucose Random 107 mg/dL (60-115); Potassium 3.8 mmol/L (3.3-5.1); Sodium 139 mmol/L (135-145)
[2022-11-16 20:18] LABS: Troponin-I High Sensitivity < 3.5 ng/L (<3.5-17.0)
[2022-11-16 20:23] LABS: IDNOW Serial# 16C4AD1C; Influenza A Negative (Negative); Influenza B2 Negative (Negative)
[2022-11-16 20:56] VITALS: BP 135/84; PULSE 77; RESP 17; TEMP 36.7; O2SAT 100
--- NOTE | 2022-11-16 21:02 | PC.NURSE ---
VSS. pt ambulatory at time of discharge. pt reports 2/10 pain at this time discharge packet provided to pt. pt verbalized understanding of discharge plan.
== END 2022-11-16 21:03 | disposition home or self-care (01) ==
PROVIDERS: Emergency Provider Emergency Medicine
DX: U07.1 COVID-19 (principal); R07.89 Other chest pain; R09.1 Pleurisy; R06.02 Shortness of breath; Z79.899 Other long term (current) drug therapy
CPT/HCPCS: 36415; 71046; 80048; 84484; 85025; 85379; 87502; 87635; 93005; 99283; 99284

== ENCOUNTER 2022-12-25 13:23 | Emergency (ER) | payer OTHER, SELFPAY ==
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
[2022-12-25 13:30] VITALS: BP 138/82; BP 148/78; PULSE 77; PULSE 88; RESP 20; TEMP 36.5; O2SAT 100; O2SAT 94; BMI 51.0
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
[2022-12-25 14:08] LABS: MANUAL DIFF FLAG NO
[2022-12-25 14:12] LABS: Basophils Percent Auto 0.6 % (0-2); Eosinophils Absolute Auto 0.2 X10*3/uL (0.0-0.4); Eosinophils Percent Auto 4.7 % (0-4); Hematocrit 36.5 % (37.0-47.0); Hemoglobin 12.3 g/dl (12.0-16.0); Imm Gran Abs Auto 0.01 X10*3/uL (0.00-0.03); Imm Gran Pct Auto 0.2 % (0.0-0.4); Lymphocytes Absolute Auto 1.9 X10*3/uL (1.2-4.9); Lymphocytes Percent Auto 38.6 % (20-40); Mean Corpuscular HGB Conc 33.7 g/dl (31.0-35.0); Mean Corpuscular Hemoglobin 29.8 pg (27.0-33.0); Mean Corpuscular Volume 88.4 fL (80.0-98.0); Mean Platelet Volume 9.1 fL (9.4-12.3); Monocytes Absolute Auto 0.4 X10*3/uL (0.1-1.2); Monocytes Percent Auto 7.6 % (2-11); Neutrophils Absolute Auto 2.3 x10*3/uL (2.0-8.3); Neutrophils Percent Auto 48.3 % (45-73); Platelet Count 329 X10*3/uL (160-400); Red Blood Count 4.13 X10*6/uL (4.20-5.50); White Blood Count 4.9 X10*3/uL (4.8-10.8)
[2022-12-25 14:23] LABS: Anion Gap 15 (12-20); Blood Urea Nitrogen 7 mg/dL (9-16); Calcium 9.3 mg/dL (8.4-10.2); Carbon Dioxide 25 mmol/L (22-29); Chloride 104 mmol/L (96-108); Creatinine Clr Calc Pharmacy 176.1; Estimated Glomerular Filt Rate > 60; Glucose Random 111 mg/dL (60-115); Potassium 3.8 mmol/L (3.3-5.1); Sodium 140 mmol/L (135-145)
[2022-12-25 16:13] LABS: HCG Quantitative < 2 mIU/mL
[2022-12-25] MEDS: iohexoL 350 MG/ML 100 ML INFUS..BTL IV (17:20)
== END 2022-12-25 18:27 | disposition home or self-care (01) ==
PROVIDERS: Nurse Practitioner Family; Emergency Provider Emergency Medicine
DX: S00.93XA Contusion of unspecified part of head, initial encounter (principal); S70.01XA Contusion of right hip, initial encounter; M54.6 Pain in thoracic spine; R51.9 Headache, unspecified; V43.52XA Car driver injured in collision with other type car in traffic accident, initial encounter; Y93.9 Activity, unspecified; Y92.410 Unspecified street and highway as the place of occurrence of the external cause; Y99.9 Unspecified external cause status; Z79.899 Other long term (current) drug therapy
CPT/HCPCS: 36415; 70450; 71260; 72125; 74177; 80048; 84702; 85025; 99282; 99284; Q9967

== ENCOUNTER 2023-01-14 09:05 | Outpatient (REF) | payer OTHER, SELFPAY ==
[2023-01-14 14:58] LABS: CT PCR NOT DETECTED (Not Detect.); NG PCR NOT DETECTED (Not Detect.)
[2023-01-15 12:29] LABS: BV Int Neg Control Negative (Negative); BV Int Pos Control Positive (Positive)
== END 2023-01-14 09:06 | disposition home or self-care (01) ==
LOC: HO.LNP 09:05
PROVIDERS: Visit Provider Advanced Practice Midwife
DX: Z01.419 Encounter for gynecological examination (general) (routine) without abnormal findings (principal); Z20.2 Contact with and (suspected) exposure to infections with a predominantly sexual mode of transmission; E66.01 Morbid (severe) obesity due to excess calories
CPT/HCPCS: 0353U; 87480; 87510; 87660

== ENCOUNTER 2023-01-16 11:53 | Outpatient (REF) | payer MEDICAID, SELFPAY ==
[2023-01-18 09:03] LABS: HIV AB/AG Nonreactive (Nonreactive); HIV Num 1 0.07 S/CO (0.00-0.99); Hepatitis B Surface Antigen Negative (Negative); ~HepC Num1 0.11 S/CO (0.00-0.79); ~Hepatitis C Antibody Nonreactive (Nonreactive)
[2023-01-18 09:14] LABS: Syphilis Screen Nonreactive (Nonreactive)
== END 2023-01-16 11:54 | disposition home or self-care (01) ==
LOC: HO.LAB 11:53
PROVIDERS: Visit Provider Advanced Practice Midwife
DX: Z20.2 Contact with and (suspected) exposure to infections with a predominantly sexual mode of transmission (principal)
CPT/HCPCS: 36415; 86780; 86803; 87340; 87389

== ENCOUNTER 2023-05-28 16:04 | Outpatient (REF) | payer MEDICAID, SELFPAY ==
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
== END 2023-05-28 16:05 | disposition home or self-care (01) ==
LOC: HO.HHCX 16:04
PROVIDERS: Visit Provider Registered Nurse
DX: M79.672 Pain in left foot (principal)
CPT/HCPCS: 73630

== ENCOUNTER 2024-01-17 08:37 | Outpatient (AMB) | payer OTHER, SELFPAY ==
--- NOTE | 2024-01-17 08:37 | MHC.OFFVIS ---
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 She has not met her new primary care provider and does not have an appointment and when she calls to check on things they ask her why does she need an appointment and she does not know what to say she has not been seen in a while she was diagnosed prediabetes in the past and was on metformin however when her doctor at the [facility] left after while they would not refill the prescription anymore and so she thought that she did not want her to be on it. She also had been to the weight management program and her surgery got canceled by Dr. Stan Coreas so she took it as a sign and said maybe it was not for her she had lost 53 lb in the past with the help of her grandma in [place] but she has gained it back and then some. She is somewhat discouraged she feels though she can do it if she really works at it. She has not been on any medication for prediabetes or has not been seen or evaluated or had any lab work in a very long time. She was in a relationship for 8 months and then broke up for 4 months but she did have sex with somebody else about 3 weeks ago she did use condoms. She does have a tiny little skin tag down on her buttocks perineum where the she meet that bothers her she just noticed it about a week ago. She was on control pills in the hope that it would help her get her. But it never did she stopped the control pills when she was not in a steady relationship but she after some discussion would like refills. [facility] Medical History (Updated 01/17/24 @ 09:54 by Kaur Everett CNM) H. pylori infection Vitamin D deficiency Shortness of Breath BMI 45.0-49.9, adult Morbid obesity Extreme obesity Pre-diabetes Surgical History No history of previous surgery Family History Father Diabetes Mother Depression Hypertension Breast cancer Brother No problems noted. Sister No problems noted. Sister No problems noted. Sister No problems noted. Sister No problems noted. Sister No problems noted. Sister No problems noted. Sister No problems noted. Maternal Grandmother Breast cancer Social History Alcohol intake: never Patient Tobacco Use Status: Never used Tobacco Current occupational status: employed Current occupation: rt handed Gender identity: Female Female Reproductive History Menstrual Age of Menarche: 11 Duration of menses: 3-5 days Date of last menstrual period: 11/12/23 (irregular menses) control method: pills Total pregnancies: 0 Date of last pap smear: 01/11/22 (negative, previous test 2017,negative) History of abnormal pap smear: No Physical Exam Vital Signs: Last Vital Signs BP 120/70 01/17/24 08:53 BMI result Body Mass Index 51.5 Const Nutritional Appearance: obese Chest Breast/axilla inspection: normal inspection of the breasts and normal inspection of the axillae Breast/axilla palpation: normal palpation of the breasts and normal palpation of the axillae Other: External exam within normal limits patient has a tiny skin tag on her right buttocks cheek that she said she noticed about a week ago it bothers her. She has skin tags all over. It has the appearance of either a skin tag or tiny condyloma but can meant the patient leave it alone for the meantime and it can be evaluated in future Discussed HPV patient believes she was vaccinated. Vagina pink and moist and healthy nulliparous cervix briefly visualized but challenging to visualize completely secondary to adipose tissue bimanual exam cervix nontender uterus nontender difficult to palpate completely secondary to adipose good tone with Kegel Speculum Exam - Vagina: normal appearance of the vagina and other Speculum Exam - Cervix: normal appearance of the cervix and Other cervical findings present (limited views) Bimanual exam- vagina & uterus: other (uterus difficult to assess 2' habitus) Bimanual Exam- Adnexa, other: Other (palpation of adnexae limited 2' habitus) Assessment & Plan Assessment & Plan (1) Obesity, morbid, BMI 50 or higher: Code(s): E66.01 - Morbid (severe) obesity due to excess calories (2) Potential exposure to STD: Code(s): Z20.2 - Contact with and (suspected) exposure to infections with a predominantly sexual mode of transmission (3) Cervical cancer screening: Comment: 01/10/2022 Pap is negative. Code(s): Z12.4 - Encounter for screening for malignant neoplasm of cervix (4) Well woman exam with routine gynecological exam: Code(s): Z01.419 - Encounter for gynecological examination (general) (routine) without abnormal findings (5) Pre-diabetes: Comment: Patient states she was diagnosed with this in past and was on metformin but when her doctor left the prescription ran out and was not refilled patient has not seen a primary care provider in a very long time urged to go try to make an appointment to day here at the [facility]. Code(s): R73.03 - Prediabetes Plan Patient is here for folded cloth taper exam. She has not met her new primary care provider and does not have an appointment and when she calls to check on things they ask her why does she need an appointment and she does not know what to say she has not been seen in a while she was diagnosed prediabetes in the past and was on metformin however when her doctor at the [facility] left after while they would not refill the prescription anymore and so she thought that she did not want her to be on it. She also had been to the weight management program and her surgery got canceled by Dr. Stan Coreas so she took it as a sign and said maybe it was not for her she had lost 53 lb in the past with the help of her grandma in [place] but she has gained it back and then some. She is somewhat discouraged she feels though she can do it if she really works at it. She has not been on any medication for prediabetes or has not been seen or evaluated or had any lab work in a very long time. She was in a relationship for 8 months and then broke up for 4 months but she did have sex with somebody else about 3 weeks ago she did use condoms. She does have a tiny little skin tag down on her buttocks perineum where the she meet that bothers her she just noticed it about a week ago. She was on control pills in the hope that it would help her get her. But it never did she stopped the control pills when she was not in a steady relationship but she after some discussion would like refills. Reviewed with the patient again the significant connection being teen being overweight and not having regular menses and being amenorrheic and also pre diabetes and the urgent need for her to get back into care [place]. She had been going to the weight management program before and she might be interested in again I offered to replace the referral but she would rather start with trying to see her own new primary care provider here at the [facility] so she is going to walk downstairs to the [facility] and try to convince them to give her an appointment as soon as possible to be evaluated and start there in the meantime she would like a refill on the control pills and I will send a prescription for refill the address noy unknown pills that her other provider started her on in the past she had hoped that they would allow her to have menses but as she has gained weight that is not occurring discussed that at some point she may very well need an evaluation for amenorrhea which would involve an endometrial biopsy and be quite uncomfortable but it may become necessary discussed the dangers of prolonged amenorrhea. Testing done for gonorrhea chlamydia trichomoniasis Gardnerella and Jeanna. Her discharge scant white and healthy appearing cervix difficult to visualize but what was visible was pink and healthy appearing nulliparous. Urged her very much to deal with her weight issue before there are more longstanding consequences to her health. She said everybody in her family is overweight like her with the exception of her brother who works out all the time and who was helping her in the past. Orders: Orders CT NG by PCR Today Z01.419 - Encounter for gynecological examination (general) (routine) without abnormal findings Bacterial Vaginosis Panel Today Z20.2 - Contact with and (suspected) exposure to infections with a predominantly sexual mode of transmission Medications: Changed From drospirenone (contraceptive) (Slynd) 1 tab PO DAILY To drospirenone (contraceptive) (Slynd) This is refilling her an old prescription. patient to be seen by her primary care provider 1 tab PO DAILY 84 tabs 3RF Coding Level of Care Code Est Pt Prev Care 18-39y(08240) Diagnoses Obesity, morbid, BMI 50 or higher E66.01 Potential exposure to STD Z20.2 Cervical cancer screening Z12.4 Well woman exam with routine gynecological exam Z01.419 Pre-diabetes R73.03
[2024-01-17 08:53] VITALS: BP 120/70; BMI 51.5
== END 2024-01-17 10:43 | disposition home or self-care (01) ==
LOC: HO.HWSM 08:37
PROVIDERS: Visit Provider Advanced Practice Midwife
DX: E66.01 Morbid (severe) obesity due to excess calories (principal); Z20.2 Contact with and (suspected) exposure to infections with a predominantly sexual mode of transmission; Z12.4 Encounter for screening for malignant neoplasm of cervix; Z01.419 Encounter for gynecological examination (general) (routine) without abnormal findings; R73.03 Prediabetes
CPT/HCPCS: 99395

== ENCOUNTER 2024-01-17 08:37 | Outpatient (REF) | payer MEDICAID, SELFPAY ==
[2024-01-18 05:25] LABS: CT PCR NOT DETECTED (Not Detect.); NG PCR NOT DETECTED (Not Detect.)
[2024-01-18 13:48] LABS: BV Int Neg Control Negative (Negative); BV Int Pos Control Positive (Positive)
== END 2024-01-17 08:38 | disposition home or self-care (01) ==
LOC: HO.LAB 08:37
PROVIDERS: Visit Provider Advanced Practice Midwife
DX: Z01.419 Encounter for gynecological examination (general) (routine) without abnormal findings (principal); E66.01 Morbid (severe) obesity due to excess calories; Z20.2 Contact with and (suspected) exposure to infections with a predominantly sexual mode of transmission; R73.03 Prediabetes
CPT/HCPCS: 0353U; 87480; 87510; 87660; 99395

== ENCOUNTER 2024-02-25 12:32 | Outpatient (REF) | payer OTHER, SELFPAY ==
[2024-02-25 13:19] LABS: MANUAL DIFF FLAG NO
[2024-02-25 13:38] LABS: Basophils Absolute Auto 0.1 X10*3/uL (0.0-0.2); Eosinophils Absolute Auto 0.5 X10*3/uL (0.0-0.4); Eosinophils Percent Auto 8.9 % (0-4); Hematocrit 38.1 % (37.0-47.0); Hemoglobin 12.3 g/dl (12.0-16.0); Imm Gran Abs Auto 0.03 X10*3/uL (0.00-0.03); Imm Gran Pct Auto 0.5 % (0.0-0.4); Lymphocytes Absolute Auto 1.9 X10*3/uL (1.2-4.9); Lymphocytes Percent Auto 32.6 % (20-40); Mean Corpuscular HGB Conc 32.3 g/dl (31.0-35.0); Mean Corpuscular Volume 89.9 fL (80.0-98.0); Monocytes Absolute Auto 0.5 X10*3/uL (0.1-1.2); Monocytes Percent Auto 7.7 % (2-11); Neutrophils Absolute Auto 2.9 x10*3/uL (2.0-8.3); Neutrophils Percent Auto 49.3 % (45-73); Platelet Count 314 X10*3/uL (160-400); Red Blood Count 4.24 X10*6/uL (4.20-5.50); Red Cell Distribution Width 13.2 % (11.0-16.0); White Blood Count 5.9 X10*3/uL (4.8-10.8)
[2024-02-25 13:51] LABS: Estimated Average Glucose 131 mg/dL; Hemoglobin A1c % 6.2 % (<6.0)
[2024-02-25 14:12] LABS: Alanine Aminotransferase 37 U/L (0-31); Albumin Level 4.1 g/dL (3.5-5.0); Alkaline Phosphatase 69 U/L (39-117); Anion Gap 12 (12-20); Aspartate Amino Transferase 24 U/L (5-31); Bilirubin Total 0.3 mg/dL (0.0-1.0); Blood Urea Nitrogen 6 mg/dL (9-16); Carbon Dioxide 27 mmol/L (22-29); Chloride 106 mmol/L (96-108); Cholesterol 183 mg/dL (<200); Estimated Glomerular Filt Rate > 60; Glucose Random 114 mg/dL (60-115); HDL Cholesterol 45 mg/dL (>40); LDL Cholesterol Calculated 121 mg/dL (<100); Potassium 3.8 mmol/L (3.3-5.1); Sodium 141 mmol/L (135-145); Total Protein 7.8 g/dL (6.5-8.0); Triglycerides 87 mg/dL (<150)
[2024-02-25 14:29] LABS: TSH reflex Free T4 1.34 uIU/mL (0.32-4.0)
== END 2024-02-25 12:33 | disposition home or self-care (01) ==
LOC: HO.HHCL 12:32
PROVIDERS: Visit Provider Nurse Practitioner Family
DX: N92.6 Irregular menstruation, unspecified (principal)
CPT/HCPCS: 36415; 80053; 80061; 83036; 84443; 85025

== ENCOUNTER 2024-05-18 12:15 | Outpatient (REF) | payer OTHER, SELFPAY ==
[2024-05-18 14:07] LABS: Estimated Average Glucose 131 mg/dL; Hemoglobin A1c % 6.2 % (<6.0)
[2024-05-19 22:53] LABS: Follicle Stimulating Hormone 5.7 mIU/mL; Prolactin Undiluted 7.7 ng/mL
[2024-05-22 12:49] LABS: Testosterone, Total 40 ng/dL (2-45)
== END 2024-05-18 12:16 | disposition home or self-care (01) ==
LOC: HO.HHCL 12:15
PROVIDERS: Visit Provider Nurse Practitioner Family
DX: N91.2 Amenorrhea, unspecified (principal); N91.1 Secondary amenorrhea
CPT/HCPCS: 36415; 83001; 83036; 84146; 84403

== ENCOUNTER 2025-01-19 10:05 | Outpatient (AMB) | payer OTHER, SELFPAY ==
--- NOTE | 2025-01-19 10:01 | MHC.OFFVIS ---
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 She is still struggling with weight. She it has plans to make an appointment with her primary care provider here at the [facility]. She restarted on metformin some months ago and she says that plus a single use of Provera jump started her periods again and now she is getting them regularly every month. She knows that if she ever missed 3 months she would need to seek Provera again. 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 She lives at home with her mother and brother. She is currently not exercising. She is going to be speaking with her doctor about what other medication she might be able to add in for weight loss. We also discussed options for weight loss surgery that might be available to her. [facility] Medical History H. pylori infection Vitamin D deficiency Shortness of Breath BMI 45.0-49.9, adult Morbid obesity Extreme obesity Pre-diabetes Surgical History No history of previous surgery Family History Father Diabetes Mother Depression Hypertension Breast cancer Brother No problems noted. Sister No problems noted. Sister No problems noted. Sister No problems noted. Sister No problems noted. Sister No problems noted. Sister No problems noted. Sister No problems noted. Maternal Grandmother Breast cancer Social History Alcohol intake: never Patient Tobacco Use Status: Never used Tobacco Current occupational status: employed Current occupation: rt handed Gender identity: Female Female Reproductive History Menstrual Age of Menarche: 11 Duration of menses: other Date of last menstrual period: 01/02/25 control method: none Date of last pap smear: 01/10/22 (neg,2018,WNL) Physical Exam Vital Signs: Last Vital Signs BP 132/80 01/19/25 10:08 BMI result Body Mass Index 52.6 Const General: healthy appearing, comfortable, no acute distress, well developed and alert Nutritional Appearance: average body habitus and obese Orientation/consciousness: patient oriented x3 Limitations: no limitations HEENT Head: Yes normocephalic Neck Neck: Yes normal visual inspection Chest Chest palpation & inspection: normal inspection of the chest Breast/axilla inspection: normal inspection of the breasts and normal inspection of the axillae Breast/axilla palpation: normal palpation of the breasts and normal palpation of the axillae Resp Effort & Inspection: normal respiratory effort GI Inspection: Yes normal to inspection, No Abdominal wall edema and No distended Palpation (GI): Soft to palpation and nontender Other: Exam somewhat limited by adipose patient is noticing increased occurrence of skin tags and she has 1 on her right labia the which recently appeared and is uncomfortable because of its position and place a friction Vagina otherwise pink moist healthy appearing with very healthy appearing mucus cervix nulliparous pink smooth healthy appearing mobile nontender uterus difficult feel but mobile nontender adnexa mobile nontender no organomegaly. Good tone with Kegel General: Yes bladder normal to palpation External Female Exam: normal external appearance and normal appearance of the urethra Speculum Exam - Vagina: normal appearance of the vagina, normal palpation and normal vaginal discharge Speculum Exam - Cervix: normal appearance of the cervix, normal palpation and nontender Bimanual exam- vagina & uterus: normal bimanual exam, normal palpation, uterine size normal, bladder normal to palpation, consistency normal, normal palpation, uterine mobility normal, uterine shape normal, No Cervical tenderness present, non-tender and no cervical motion tenderness Bimanual Exam- Adnexa, other: normal adnexae, no masses, normal and No adnexal tenderness Neuro General: patient oriented x3 Assessment & Plan Assessment & Plan (1) Pre-diabetes: Comment: Patient states she was diagnosed with this in past and was on metformin but when her doctor left the prescription ran out and was not refilled patient has not seen a primary care provider in a very long time urged to go try to make an appointment to day here at the [facility].; 01/19/2025 she is back on the metformin in feels better on it and says she is getting regular periods with it as well she will be going to see her primary very soon. Code(s): R73.03 - Prediabetes Category: Medical (2) Well woman exam with routine gynecological exam: Code(s): Z01.419 - Encounter for gynecological examination (general) (routine) without abnormal findings Category: Medical (3) Cervical cancer screening: Comment: 01/10/2022 Pap is negative. Code(s): Z12.4 - Encounter for screening for malignant neoplasm of cervix Category: Medical (4) Extreme obesity: Code(s): E66.8 - Other obesity Category: Medical Plan -----Discussed in this visit the following: healthy balanced diet, regular and consistent exercise, getting recommended health screens, doing the best she can for her particular health concerns, kegel exercises, pap smear screening and followup recommendations, mammography screening and SBE, normal changes in cycles in her life stage--- . Much of the visit was spent involve then her pre diabetes in her extreme obesity and past issues with periods of amenorrhea. She does not need control at the moment she knows that if she misses more than 3 months she needs to seek out another consultation and dose of Provera. I Discussed options and motivation and my recommendation that she really work on losing the weight if she can this year and try to do it before she turns 31. Discussed that right now she is looking very very good, but the pre diabetes is a warning that it is starting to have effects on her health and this is the time to try and do something about it. She is going to seek out options possibly with various weight loss medications but discussed with her potentially seeking other options as well perhaps bariatric options in other facilities Coding Level of Care Code Est Pt Prev Care 18-39y([id number]) Diagnoses Pre-diabetes R73.03 Well woman exam with routine gynecological exam Z01.419 Cervical cancer screening Z12.4 Extreme obesity E66.8
[2025-01-19 10:08] VITALS: BP 132/80; BMI 52.6
--- OUTSIDE RECORDS SUMMARY | 2025-01-19 11:59 | XMS_ITS | Clinical Summary ---
Author Organization [employer] Address [address] [facility] [address] [place] [address] Care Team Providers Care Telephone Repairer Name Role Phone Yue Larkin NP Primary Care Provider [phone] Allergies No known active allergies Medications sodium chloride (Mcdade Nasal [place]) 0.65 % nasal sprayIndication s:Acute diffuse otitis externa of left ear 1-2 sprays on each nostril every 2-3 hours as needed for nasal congestion 30 mL 1 3 Active cetirizine (ZyrTEC) 10 MG tabletIndicatio ns:Ear itching Take 1 tablet (10 mg) by mouth in the morning. 90 tablet 2 3 Active escitalopram (Lexapro) 5 MG tablet Take 5 mg by mouth in the morning. Active hydrOXYzine HCl (Atarax) 10 MG tablet Take 10 mg by mouth if needed at bedtime for itching. Active norethindrone (Aygestin) 5 MG tabletIndicatio ns:Amenorrhea Take 1 tablet (5 mg) by mouth Once per day for 10 days. 10 tablet 4 Active metFORMIN, OSM, (Fortamet) 500 MG 24 hr tabletIndicatio ns:Secondary amenorrhea Take 1 tablet (500 mg) by mouth with breakfast and with evening meal. Do not crush, chew, or split. 60 tablet 11 4 05/18/20 25 Active baclofen (Lioresal) 10 MG tabletIndicatio ns:Muscle spasm Take 1 tablet (10 mg) by mouth if needed in the morning, at noon, and at bedtime for muscle spasms for up to 20 days. 30 tablet 1 4 Active Active Problems Patient Care Coordination No te Formatting of this note migh t be different from the original. C3/CM Monae Nix RN Problem Noted Date Diagnosed Date Health care maintenance 06/23/2024 Assessment & Plan (07/07/2024 11:51 AM EDT): Pap due 2024, utd on sti screening declines today, metabolic screenings also completed, continue with current health goals Muscle spasm 06/23/2024 Assessment & Plan (07/07/2024 11:51 AM EDT): Intermittent back spasms. Prn baclofen prescribed Snoring 04/28/2024 Assessment & Plan (07/07/2024 11:47 AM EDT): Upcoming sleep study scheduled Assessment & Plan (04/28/2024 6:59 PM EDT): Referred to sleep medicine for further evaluation Secondary amenorrhea 04/28/2024 Assessment & Plan (05/23/2024 5:00 PM EDT): Pt with withdrawal bleed after progesterone, initiate metformin, see below. Pt declines ongoing hormonal management but is aware that if no menses for 3 months she will need an ov. Assessment & Plan (04/28/2024 7:03 PM EDT): Reviewed etiologies, pt opts for withdrawal bleed (progesterone), rx sent, Pelvic us ordered Pt will report failure to bleed after med Period has come late 02/25/2024 Irregular menses 02/25/2024 Assessment & Plan (07/07/2024 11:50 AM EDT): Pt aware to monitor at 3 month intervals, resumed metformin for prediabetes and presumed pcos. Pt aware of management options but declines contraception at this time Assessment & Plan (02/25/2024 1:00 PM EDT): Labs as ordered below Treatment pending results Skin tags, multiple acquired 02/25/2024 Morbid obesity with BMI of 50.0-59.9, adult 07/2024 Assessment & Plan (04/28/2024 7:04 PM EDT): Difficulty losing weight, reviewed eligibility for surgery and glp-1 . Pt declines meds or referral today Assessment & Plan (02/25/2024 1:00 PM EDT): Pt has successfully lost weight historically, motivated to re engage with exercise, rtc in 2 months Sleep apnea 02/25/2024 Overview (02/25/2024): Presumed, 02/2024 Assessment & Plan (02/25/2024 12:59 PM EDT): Presumed, pt aware of risks associated with untreated apnea, at this time opts for healthy lifestyle management Follow up in 2 months and if no progress will refer to sleep medicine Elevated blood pressure reading 02/25/2024 Assessment & Plan (07/07/2024 11:47 AM EDT): Above goal today, rtc in 3 months, hx at goal Assessment & Plan (02/25/2024 12:59 PM EDT): Insightful and motivated to engage in heart healthy lifestyle changes, Rtc in 2 months for repeat Goal <140/<80 HANY (generalized anxiety disorder) 02/25/2024 Assessment & Plan (07/07/2024 11:51 AM EDT): Stable in therapy, continue 5 mg escitalopram Assessment & Plan (02/25/2024 1:01 PM EDT): In therapy and taking and tolerating lexapro Subacute vaginitis 02/04/2023 Assessment & Plan (02/04/2023 12:03 PM EDT): No evidecne of UTI. Sxs are more c/w candidiasis. Use clotrimazole vaginal cream x 7d Laceration of left external ear 02/04/2023 Assessment & Plan (02/04/2023 12:03 PM EDT): Rx Amxocillin x 5d Avoid pocking in to ear, gentle cleaning or ext ear only, use baby germaine to avoid lacerations. Impaired fasting blood sugar 10/21/2017 Assessment & Plan (05/23/2024 4:59 PM EDT): Hx tolerated metformin, will reinstate, side effects reviewed Obesity 2015 Assessment & Plan (07/07/2024 11:51 AM EDT): Focused on heart healthy lifestyle Eczema 01/27/2013 Encounters Date Type Department Care Team Description 10/24/2024 10:40 AM EST Office Visit [facility] [address] [place] [address] Name, MD Dave Acute otitis media, unspecified otitis media type (Primary Dx); Acute ear pain, left 10/24/2024 Travel from Last 3 Months Immunizations Name Administration Dates Next Due DTaP 09/04/2000, 8,1996,08/11,1996 HPV, Quadrivalent 06/03/2008,08/21/2007,06/20/20 07 Hep A, Adult 2015 Hep A, ped/adol, 2 dose 01/27/2013 Hep B, Adolescent or Pediatric 1996,1995,1996 Hib (HbOC) 01/24/1998, 6,1996,06/05 IPV 09/04/2000, 6,1996,06/05 Influenza Quadrivalent Adjuvanted 08/13/2022, Influenza injectable quadriv alent IIV4 with preservative 09/16/2023,09/20/2016 Influenza injectable quadriv alent preservative free 10/19/2019 Influenza, IIV3, injectable 10/09/2011, 0 Influenza, Split (incl. daxa fied surface antigen) 10/23/2013,12/10/2012 MMR 09/04/2000,06/15/1997 Meningococcal MCV4P ACYW-135 01/27/2013,06/19/20 07 Tdap 07/14/2021,06/20/2005 Varicella 06/03/2008,08/09/2003 Family History Medical History Relation Name Comments Heart attack Mother Relation Name Status Comments Mother Social History Tobacco Use Types Packs/Day Years Used Date Smoking Tobacco: Never Smokeless Tobacco: Never Tobacco Cessation:Counseling Given: Not Answered Alcohol Use Standard Drinks/Week Comments Never 0 (1 standard drink = 0.6 oz pur e alcohol) occasionally Depression Answer Date Recorded Patient Health Questionnaire-9 Score 0 04/28/2024 Patient Health Questionnaire-9 Score 0 04/28/2024 Last PHQ-9: Questionnaire Data Not on file 0 04/28/2024 Housing Stability Answer Date Recorded What is your housing situation today? I have andres gunter 05/18/[address] you li ve. Do you have problems with any of the following? None of the above 05/18/2024 Food Insecurity Answer Date Recorded Within the past 12 months, y ou worried that your food would run out before you got money to buy more: Often true 05/18/2024 Within the past 12 months,th e food you bought just didn't last and you didn't have enough money to get more: Often true 11/2023 Transportation Answer Date Recorded In the past 12 months, has l ack of transportation kept you from medical appts, meetings, work or from getting things needed for daily living? No 05/18/2024 Utilities Answer Date Recorded In the past 12 months, has t he electric, gas, oil or water company threatened to shut off services in your home? No 05/18/2024 Depression Answer Date Recorded Patient Health Questionnaire-2 Score 0 04/28/2024 Internet Access Answer Date Recorded Internet Access Q1 No 07/20/2024 Internet Access Q2 I do not want or need it 12/2023 Education Answer Date Recorded What is the highest level of school you have completed or the highest degree you have received? 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 Not on file Not on file Last Filed Vital Signs Vital Sign Reading Time Taken Comments Blood Pressure 130/80 10/24/2024 10:33 AM EST Pulse 60 10/24/2024 10:33 AM EST Temperature 37.1 ??C (98.7 ??F) 10/24/2024 10:[address] Respiratory Rate 20 10/24/2024 10:33 AM EST Oxygen Saturation 98% 10/24/2024 10:33 AM EST Inhaled Oxygen Concentration - - Weight 159 kg (350 lb) 10/24/2024 10:33 AM EST Height 170.2 cm (5' 7 ) 10/24/2024 10:33 AM EST Body Mass Index 54.82 10/24/2024 10:33 AM EST Plan of Treatment Health Maintenance Due Date Last Done Comments Family Planning (PISQ) 2011 COVID-19 Vaccine ( season) 2024 01/15/2022, 07/07/2021, 06/09/2021 Influenza Vaccine (#1) 2024 3, 08/13/2022, 09/04/2021, Additional history exists Pap Smear 01/11/2025 01/11/2022 Alcohol/Substance Use Screening 04/28/2025 04/28/2024 Depression Screening 04/28/2025 04/28/2024, 04/28/20 Diabetes: Hemoglobin A1C 05/18/2025 024, 02/25/2024, 05/23/2021, Additional history exists SDOH Screening 05/18/2025 05/18/2024 Tobacco Screening 10/24/2025 10/24/2024 Lipid Panel 02/24/2029 02/25/2024 DTaP/Tdap/Td Vaccines (7 - Td or Tdap) 07/14/2031 07/14/2021, 06/20/2005, 09/04/2000, Additional history exists Zoster Vaccines (1 of 2) 2046 RSV Patients and Patients Aged 60 years or older (1 - 1-dose 75+ series) 2071 Hepatitis B Vaccines Completed 1996, 1996, 1996 HIB Vaccines Completed 01/24/1998, 12/1995, 1996, Additional history exists IPV Vaccines Completed 09/04/2000, 12/1995, 1996, Additional history exists HPV Vaccines Completed 06/03/2008, 02/2007, 06/20/2007 Meningococcal Vaccine Completed 01/27/2013, 007 Hepatitis A Vaccines Completed 2015, 01/28/20 13 HIV Screening Completed 01/16/2023, 09/19, 06/21/2020 Hepatitis C Screening Completed 01/16/2023 , 10/11/2020, 06/21/2020 Pneumococcal Vaccine: Pediatrics (0 to 5 Years) and At-Risk Patients (6 to 49) Years) Aged Out No longer eligible based on patient's age to complete this topic RSV under 20 months Aged Out No longe r eligible based on patient's age to complete this topic Rotavirus Vaccines Aged Out No longer eligible based on patient's age to complete this topic Procedures Procedure Name Priority Date/Time Associated Diagnosis Comments HEMOGLOBIN A1C Routine 05/18/2024 12:18 PM EDT Secondary amenorrhea LIPID PANEL, STANDARD Routine 02/25/2024 12:33 PM EDT Irregular menses HEPATITIS C ANTIBODY Routine 01/16/2023 12:04 PM EST HIV ANTIBODY/ANTIGEN ([place] DPH) Routine 01/16/2023 12:04 PM EST HM PAP/HPV Routine 01/11/2022 from Last 3 Months or Most Recently Relevant to Health Maintenance Results * (ABNORMAL) Hemoglobin A1c (05/18/2024 12:18 PM EDT) Hemoglobin A1c 6.2(H) <6.0 % [facility] Comment:Hemoglobin A1C Refer ence Range Adults: 4.8 - 6.0 % Non diabetic: < 6.0 % Goal: < 7.0 %Additional Action Suggested: > 8.0 %Note: Hemoglobin A1c results are invalid for patients with abnormal amounts of HbF. Blood transfusions may impact the HbA1c concentration in the patient sample. Estimated Average Glucose 131 mg/dL [facility] Comment:eAG = Estimated ave rage glucose which is %A1C expressed asaverage glucose, using the formula of the P5F-RjxfzstMwxjgti Glucose study (ADAG), Diabetes Care, Vol.31,#8,Jun. 2007 Blood Venous blood specimen / Unknown 05/18/2024 12:18 PM EDT 05/18/2024 1:18 PM EDT us Yue Larkin [facility] BLOOD ORDERABLES Final Resul t [facility] [address] [place] [phone] * (ABNORMAL) Lipid Panel, Standard (02/25/2024 12:33 PM EDT) Triglycerides 87 <150 mg/dL [facility] Comment:Desirable Triglyceri de: less than 150 mg/dLBorderline High Triglyceride 150-199 mg/dLHigh Triglyceride: 200-499 mg/dLVery High Triglyceride: greater than or equal to 5OO mg/dL Cholesterol 183 <200 mg/dL [facility] Comment:Desirable Cholestero l: less than 200 mg/dLBorderline High Cholesterol: 200-239 mg/dLHigh Cholesterol: greater than 239 mg/dL LDL Cholesterol Calculated 121(H) <100 mg/dL [facility] Comment:Desirable LDL: less than 100 mg/dLNear Optimal/Above Optimal LDL: 110- 129 mg/dLBorderline High LDL: 130-159 mg/dLHigh LDL: 160-189 mg/dLVery High LDL: greater than or equal to 190 mg/dL HDL Cholesterol 45 >40 mg/dL [facility] Comment:Desirable HDL: great er than 40 mg/dL Note: This HDL assay may give artificially low results in patients with liver disease. Blood Venous blood specimen / Unknown 02/25/2024 12:33 PM EDT 02/25/2024 1:12 PM EDT Yue Larkin [facility] BLOOD ORDERABLES Final Resul t Performing Organization Address City/[facility] Co de Phone Number [facility] [address] [place] [phone] * Hepatitis C Ab (01/16/2023 12:04 PM EST) Pathologist [facility] Hepatitis C Antibody Nonreactive Nonreactive [facility] Comment:Antibodies to HCV no t detected; does not exclude early acuteHCV infection. 01/16/2023 12:0 4 PM EST 01/16/2023 12:04 PM EST [facility] External Provider LAB BLO OD ORDERABLES Final Result Performing Organization Address [facility] de Phone Number [facility] [address] [place] [phone] * HIV Ab/Ag (GO [facility]) (01/16/2023 12:04 PM EST) HIV AB/AG Nonreactive Nonreactive [facility] Comment:HIV-1 p24 Ag and/or HIV-1/HIV-2 Ab not detected.A test result that is nonreactive does not exclude thepossibility of exposure to or infection with HIV-1 and/orHIV-2. Nonreactive results in this assay for individualswith prior exposure to HIV-1 and/or HIV-2 may be due toantigen and antibody levels that are below the limit ofdetection of this assay.The [employer] HIV Ag/Ab Combo assay result andsupplemental assay results should be interpreted inconjunction with the patient's clinical presentation,history and other laboratory results. If the results areinconsistent with clinical evidence, additional testing issuggested to confirm the result. 01/16/2023 12:0 4 PM EST 01/16/2023 12:04 PM EST [facility] External Provider LAB BLO OD ORDERABLES Final Result [facility] [address] [place] [phone] [phone] * PAP/HPV (01/11/2022) Pap Negative for intraephithelial lesion or malignancy Negative for intraephithelial lesion or malignancy, Epithelial cell abnormality HPV Not Detected Undetected, Indeterminate, Quantitative, Not Detected Historical Provider MD HEALTH MAINTENANCE Final Result from Last 3 Months or Most Recently Relevant to Health Maintenance Insurance [facility] Care Teams Telephone Repairer Relationship Specialty Start Date End Date Yue Larkin NP [address] [place] [address] PCP - General Family Medicine 01/17/24
--- OUTSIDE RECORDS SUMMARY | 2025-01-19 11:59 | XMS_ITS | Encounter Summary ---
Author Organization [employer] Address [address] [facility] 7[address] [place] [address] Care Team Providers Care Studio Director Name Role Phone Yue Larkin NP Primary Care Provider [phone] Reason for Visit * Reason Onset Date Comments FYI 05/08/2024 Encounter Details Date Type Department Care Team (Late st Contact Info) Description 05/08/2024 Telephone [facility] [address] [place] [address] Yue Larkin NP [address] [place] [address] FYI Social History Tobacco Use Types Packs/Day Years Used Date Smoking Tobacco: Never Smokeless Tobacco: Never Alcohol Use Standard Drinks/Week Comments Never 0 (1 standard drink = 0.6 oz pur e alcohol) occasionally Depression Answer Date Recorded Patient Health Questionnaire-9 Score 0 04/28/2024 Patient Health Questionnaire-9 Score 0 04/28/2024 Last PHQ-9: Questionnaire Data Not on file 0 04/28/2024 Housing Stability Answer Date Recorded What is your housing situation today? I have andres gunter 09/12/[address] you li ve. Do you have problems with any of the following? None of the above 09/12/2023 Food Insecurity Answer Date Recorded Within the past 12 months, y ou worried that your food would run out before you got money to buy more: Never True 09/12/2023 Within the past 12 months,th e food you bought just didn't last and you didn't have enough money to get more: Never True Transportation Answer Date Recorded In the past 12 months, has l ack of transportation kept you from medical appts, meetings, work or from getting things needed for daily living? No 09/12/2023 Utilities Answer Date Recorded In the past 12 months, has t he electric, gas, oil or water company threatened to shut off services in your home? No 09/12/2023 Depression Answer Date Recorded Patient Health Questionnaire-2 Score 0 04/28/2024 Education Answer Date Recorded What is the highest level of school you have completed or the highest degree you have received? 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 To schedule follow up apt. On 05/18/2024, pt. Verbally greed and understood. * Telephone Encounter - Erin Gurrola RN - 05/08/2024 11:20 AM EDT Please review and advise if needed. * Telephone Encounter - Salvador Coronel - 05/08/2024 10:58 AM EDT Tc from patient calling to inform the provider the medication to induce menstrual cycle does not work and was advised by the seed specialist to be put on Metformin due to being diagnosed with acanthosis nigricans documented in this encounter Plan of Treatment Not on file documented as of this encounter Visit Diagnoses Not on filedocumented in this encounter Additional Health Concerns Assessment Noted Time PHQ-9 Depression Total Score: 0 04/28/20 11:48 AM EDT documented as of this encounter Care Teams Studio Director Relationship Specialty Start Date End Date Yue Larkin NP [address] [place] [address] PCP - General Family Medicine 01/17/24 documented as of this encounter
== END 2025-01-19 11:41 | disposition home or self-care (01) ==
PROVIDERS: Visit Provider Advanced Practice Midwife
DX: Z01.419 Encounter for gynecological examination (general) (routine) without abnormal findings (principal)
CPT/HCPCS: 99395; 99459

== ENCOUNTER 2025-01-19 10:05 | Outpatient (REF) | payer OTHER, SELFPAY ==
--- OUTSIDE RECORDS SUMMARY | 2025-01-19 13:52 | XMS_ITS | Encounter Summary ---
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 [...] not work and was advised by the ap processor to be put on Metformin due to being diagnosed with acanthosis nigricans documented in this encounter Plan of Treatment Not on file documented as of this encounter Visit Diagnoses Not on filedocumented in this encounter Additional Health Concerns Assessment Noted Time PHQ-9 Depression Total Score: 0 04/28/20 11:48 AM EDT documented as of this encounter Care Teams Senior Quality Control Inspector Relationship Specialty Start Date End Date Yue Larkin NP [address] [place] [address] PCP - General Family Medicine 01/17/24 documented as of this encounter
--- OUTSIDE RECORDS SUMMARY | 2025-01-19 13:52 | XMS_ITS | Clinical Summary ---
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 Blood transfusions may impact the HbA1c concentration in the patient sample. Estimated Average Glucose 131 mg/dL [facility] Comment:eAG = Estimated ave rage glucose which is %A1C expressed asaverage glucose, using the formula of the G7F-[id number] Glucose study (ADAG), Diabetes Care, Vol.31,#8,Jun. 2007 Blood Venous blood specimen / Unknown 05/18/2024 12:18 PM EDT 05/18/2024 1:18 PM EDT us Yue Larkin FLOORING MACHINE OPERATOR LAB BLOOD ORDERABLES Final Resul t [facility] [address] [place] [phone] * (ABNORMAL) Lipid Panel, Standard (02/25/2024 12:33 PM EDT) Triglycerides 87 <150 mg/dL [facility] Comment:Desirable Triglyceri de: less than 150 mg/dLBorderline High Triglyceride 150-199 mg/dLHigh Triglyceride: 200-499 mg/dLVery High Triglyceride: greater than or equal to 5OO mg/dL Cholesterol 183 <200 mg/dL [facility] Comment:Desirable Cholestero l: less than 200 mg/dLBorderline High Cholesterol: 200-239 mg/dLHigh Cholesterol: greater than 239 mg/dL LDL Cholesterol Calculated 121(H) <100 mg/dL [facility] Comment:Desirable LDL: less than 100 mg/dLNear Optimal/Above Optimal LDL: 110- 129 mg/dLBorderline High LDL: 130-159 mg/dLHigh LDL: 160-189 mg/dLVery High LDL: greater than or equal to 190 mg/dL HDL Cholesterol 45 >40 mg/dL [facility] Comment:Desirable HDL: great er than 40 mg/dL Note: This HDL assay may give artificially low results in patients with liver disease. Blood Venous blood specimen / Unknown 02/25/2024 12:33 PM EDT 02/25/2024 1:12 PM EDT Yue Larkin FLOORING MACHINE OPERATOR LAB BLOOD ORDERABLES Final Resul t Performing Organization Address [facility] Co de Phone Number [facility] [address] [place] [phone] * Hepatitis C Ab (01/16/2023 12:04 PM EST) Pathologist [facility] Hepatitis C Antibody Nonreactive Nonreactive [facility] Comment:Antibodies to HCV no t detected; does not exclude early acuteHCV infection. 01/16/2023 12:0 4 PM EST 01/16/2023 12:04 PM EST [facility] External Provider LAB BLO OD ORDERABLES Final Result Performing Organization Address [facility] de Phone Number [facility] [address] [place] [phone] * HIV Ab/Ag (GO RADHA) (01/16/2023 12:04 PM EST) HIV AB/AG Nonreactive Nonreactive [facility] Comment:HIV-1 p24 Ag and/or HIV-1/HIV-2 Ab not detected.A test result that is nonreactive does not exclude thepossibility of exposure to or infection with HIV-1 and/orHIV-2. Nonreactive results in this assay for individualswith prior exposure to HIV-1 and/or HIV-2 may be due toantigen and antibody levels that are below the limit ofdetection of this assay.[employer] HIV Ag/Ab Combo assay result andsupplemental assay results should be interpreted inconjunction with the patient's clinical presentation,history and other laboratory results. If the results areinconsistent with clinical evidence, additional testing issuggested to confirm the result. 01/16/2023 12:0 4 PM EST 01/16/2023 12:04 PM EST [facility] External Provider LAB BLO OD ORDERABLES Final Result [facility] [address] [place] [phone] * PAP/HPV (01/11/2022) Pap Negative for intraephithelial lesion or malignancy Negative for intraephithelial lesion or malignancy, Epithelial cell abnormality HPV Not Detected Undetected, Indeterminate, Quantitative, Not Detected Historical Provider MD HEALTH MAINTENANCE Final Result from Last 3 Months or Most Recently Relevant to Health Maintenance Insurance [facility] Care Teams Scaffold Setter Relationship Specialty Start Date End Date Yue Larkin NP [address] [place] [address] PCP - General Family Medicine 01/17/24
[2025-01-20 11:36] LABS: Bacterial Vaginosis PCR POSITIVE (Negative); Candida Group PCR NOT DETECTED (Not Detect); Candida glab krusei PCR NOT DETECTED (Not Detect); Trichomonas vaginalis PCR NOT DETECTED (Not Detect)
[2025-01-20 12:07] LABS: CT PCR NOT DETECTED (Not Detect.); NG PCR NOT DETECTED (Not Detect.)
== END 2025-01-19 10:06 | disposition home or self-care (01) ==
LOC: HO.LNP 10:05
PROVIDERS: Visit Provider Advanced Practice Midwife
DX: Z01.419 Encounter for gynecological examination (general) (routine) without abnormal findings (principal); N89.8 Other specified noninflammatory disorders of vagina; Z20.2 Contact with and (suspected) exposure to infections with a predominantly sexual mode of transmission; R73.03 Prediabetes; E66.9 Obesity, unspecified
CPT/HCPCS: 81515; 87491; 87591; 88175; 99395; 99459

== ENCOUNTER 2025-01-19 11:00 | Outpatient (REF) | payer OTHER, SELFPAY | END 2025-01-19 11:01 | disposition home or self-care (01) | LOC: HO.LAB 11:00 | PROVIDERS: Visit Provider Advanced Practice Midwife | DX: Z13.89 Encounter for screening for other disorder (principal) ==

== ENCOUNTER 2025-06-22 15:59 | Outpatient (REF) | payer OTHER, SELFPAY ==
[2025-06-22 18:40] LABS: Alanine Aminotransferase 26 U/L (0-31); Albumin Level 4.3 g/dL (3.5-5.0); Alkaline Phosphatase 62 U/L (39-117); Anion Gap 11 (12-20); Aspartate Amino Transferase 25 U/L (5-31); Blood Urea Nitrogen 7 mg/dL (9-16); Calcium 8.9 mg/dL (8.4-10.2); Carbon Dioxide 25 mmol/L (22-29); Chloride 108 mmol/L (96-108); Estimated Glomerular Filt Rate > 60; Potassium 3.9 mmol/L (3.3-5.1); Sodium 140 mmol/L (135-145); Total Protein 7.7 g/dL (6.5-8.0)
[2025-06-23 07:13] LABS: Hemoglobin A1C 134.5044 umol/L; Total Hemoglobin (HGBA1C) 3182.2233 umol/L
== END 2025-06-22 16:00 | disposition home or self-care (01) ==
LOC: HO.HHCL 15:59
PROVIDERS: PCP Nurse Practitioner Family; Visit Provider Nurse Practitioner Family
DX: R73.03 Prediabetes (principal)
CPT/HCPCS: 36415; 80053; 83036